=== PATIENT | female | born 1955 | race Caucasian/White ===

== ENCOUNTER → 2020-03-10 08:32 | Outpatient (CLI) | payer MEDICARE, SELFPAY ==
--- NOTE | 2020-03-10 08:36 | ART_ITS ---
Reason For Study: Varicose vein, Right thigh pain Procedure A bilateral lower extremity continuous wave Doppler with analog waveform analysis,segmental pressures,and ankle brachial indexes with exercise. Left Segmental Pressures Left brachial= 151mmHg. Left posterior tibial artery = 166mmHg. Left dorsalis pedis artery = 152mmHg. The left dorsalis pedis waveforms are triphasic. The left posterior tibial artery waveforms are triphasic. Right Segmental Pressures Right brachial= 157mmHg. Right posterior tibial artery = 165mmHg. Right dorsalis pedis artery = 162mmHg. The right dorsalis pedis waveforms are triphasic. The right posterior tibial artery waveforms are triphasic. Indices The right ankle brachial index by the dorsalis pedis is 1.03. The right ankle brachial index by the posterior tibial artery is 1.05. The right post exercise ankle brachial index is 1.14. The left ankle brachial index by the dorsalis pedis is 0.97. The left ankle brachial index by the posterior tibial artery is 1.06. The left post exercise ankle brachial index is 1.16. Interpretation Summary Triphasic Doppler waveforms are noted at ankle level bilaterally. Pulse-volume recordings appear satisfactory at all levels bilaterally, including low-thigh, calf, ankle, and digital levels. Resting ankle-brachial indices are normal bilaterally. The patient ambulated on a treadmill for 5 minutes at a 5% grade, following which ankle pressures augmented bilaterally, a normal physiological response. There is no evidence of significant arterial occlusive disease in the lower extremities bilaterally. Ordering Physician: Forrest Calvo Referring Physician: Forrest Calvo Performed By: Mirian Maciel RVT
== END ==
PROVIDERS: PCP Student in an Organized Health Care Education/Training Program; Referring Provider Student in an Organized Health Care Education/Training Program; Visit Provider Student in an Organized Health Care Education/Training Program
DX: I83.93 Asymptomatic varicose veins of bilateral lower extremities (principal); I79.8 Other disorders of arteries, arterioles and capillaries in diseases classified elsewhere
CPT/HCPCS: 93924

== ENCOUNTER 2021-06-10 14:36 | Emergency (ER) | payer MEDICARE, OTHER, SELFPAY ==
[2021-06-10 14:37] VITALS: BP 157/96; PULSE 100; RESP 18; TEMP 35.4; O2SAT 98; BMI 24.7
[2021-06-10 14:47] VITALS: O2SAT 97
--- NOTE | 2021-06-10 14:48 | EX.ED.DYSGE1 ---
HPI History of Present Illness Chief Complaint: Cold Sx Narrative Narrative: Patient is a 86-year-old female who states over the past 3 to 4 weeks she has been having persistent nasal congestion drainage and cough. She states she has been doing [id number] decongestants and nasal sprays with minimal symptom improvement. She states she has a past medical history of sinus surgery and has had recurrent sinus infections since that time. She states with the multiple weeks of symptoms not responding to time and sswp-tmi-[id number] medication she is concerned for an infection and therefore comes in for evaluation. [facility] Medical History Thyroid disease Home Medications levothyroxine 50 mcg capsule 50 mcg PO DAILY 01/30/21 [History Last Taken Unknown] amoxicillin-pot clavulanate [Augmentin] 1 tab PO BID 10 Days #20 tab 06/10/21 [Rx Last Taken Unknown] prednisone 40 mg PO DAILY 5 Days #10 tab 06/10/21 [Rx Last Taken Unknown] Allergy/AdvReac Type Severity Reaction Status Date / Time No Known Allergies Allergy Verified 06/10/21 14:37 Social History (Updated 01/30/21 @ 11:07 by Myranda Watters) Smoking Status: Never smoker alcohol intake: never ROS ROS ED Constitutional Constitutional ED: Denies chills or fever(s) ENT ENT ED: Reports rhinorrhea; Denies ear pain or sore throat Cardiovascular Cardiovascular: Denies chest pain Respiratory/Chest Respiratory/Chest: Reports cough; Denies dyspnea Gastrointestinal Gastrointestinal: Denies abdominal pain, diarrhea, nausea or vomiting Genitourinary Genitourinary ED: Denies dysuria Musculoskeletal Musculoskeletal: Denies myalgias Integumentary Denies rash Neurologic Neurologic: Reports headache(s) EXAM Physical Exam Const Vital Signs: 06/10/21 14:37 06/10/21 14:47 Temperature 95.8 F L Temperature Source Temporal Pulse Rate 100 Respiratory Rate 18 Respiratory Effort Normal Respiratory Depth Normal Respiratory Pattern Normal Blood Pressure 157/96 H Blood Pressure Mean 116 Pulse Ox 98 Oxygen Delivery Method Room Air Room Air Positive well nourished and well developed General Appearance ED: well developed HEENT Reports moist mucous membranes HEENT Narrative: Bilateral TMs are retracted but show no secondary changes to suggest infection. Nasal mucosa is hyperemic and boggy with enlarged inferior nasal turbinates. There is cobblestoning the posterior pharynx consistent with sinus drainage but no airway edema or compromise. There is pain with palpation over top the bilateral maxillary sinuses and decreased transillumination as well. Eyes PERRL and EOMs intact bilaterally Neck supple Neck Narrative: Positive anterior cervical lymphadenopathy Resp normal respiratory effort and clear to auscultation bilaterally Cardio regular rate and regular rhythm GI normal to inspection, nondistended, normoactive bowel sounds, non-tender, non-distended and no masses Auscultation: normoactive bowel sounds Palpation: soft Extremity normal to inspection Neuro oriented x3 and CN's II-XII intact bilaterally Sensorium / Orientation: alert Psych mental status grossly normal Skin no rashes or lesions noted MDM MDM MDM Narrative Medical decision making narrative: Patient presented to the ER afebrile and in no acute respiratory distress. Her symptoms are consistent with viral illness leading to acute sinusitis based on the prolonged nature of her infection. I did elect to perform a Covid swab which was negative. We discussed chest x-ray but patient's lungs are clear and she states she does not want an x-ray as she feels the cough is from drainage. As the Covid swab was negative it does point that this is a viral URI leading to secondary maxillary sinusitis. Therefore she has had symptoms for multiple weeks I will place her on a round of antibiotics and steroids but as she is in no acute distress is safe for discharge Lab Data Attestation: I reviewed the patient's lab results. Discharge Plan Triage Chief Complaint: Cold Sx ED Provider: Darci Garrison Dx/Rx/DC Orders Clinical Impression: Acute maxillary sinusitis Instructions: ED Sinusitis (Antibiotic Treatment) Prescriptions: New amoxicillin-pot clavulanate [Augmentin] 875-125 mg tablet 1 tab PO BID 10 Days Qty: 20 RF: 0 prednisone 20 mg tablet 40 mg PO DAILY 5 Days Qty: 10 RF: 0 No Action levothyroxine 50 mcg capsule 50 mcg PO DAILY RF: 0 Primary Care Provider: Forrest Calvo Referrals: Forrest Calvo DO [Primary Care Provider] - Disposition Disposition: Home, Self Care
[2021-06-10] MEDS: Amox/Clavulanate 875 MG Tablet PO (15:45)
[2021-06-10] MEDS: predniSONE 20 MG Tablet 40 MG PO (15:45)
== END 2021-06-10 15:46 | disposition home or self-care (01) ==
PROVIDERS: Emergency Provider Emergency Medicine; PCP Student in an Organized Health Care Education/Training Program
DX: J01.00 Acute maxillary sinusitis, unspecified (principal); E07.9 Disorder of thyroid, unspecified; Z79.899 Other long term (current) drug therapy
CPT/HCPCS: 87426; 99283

== ENCOUNTER 2021-06-22 11:59 | Emergency (ER) | payer MEDICARE, OTHER, SELFPAY ==
[2021-06-22 12:01] VITALS: BP 156/87; PULSE 88; RESP 16; TEMP 35.6; O2SAT 94; BMI 24.3
--- NOTE | 2021-06-22 13:43 | VDLE_ITS ---
Reason For Study: pain RIGHT GSV is normal. CFV is compressible, spontaneous, phasic, competent and demonstrates normal augmentation. FV is compressible, spontaneous, phasic, competent and demonstrates normal augmentation. POP V is compressible, spontaneous, phasic, competent and demonstrates normal augmentation. T/P Trunk is compressible. PTV is compressible. RT PerV is compressible. Procedure This is a venous duplex using B-mode, color flow and spectral Doppler. Exam performed portable in ED. The exam was abbreviated due to the COVID 19 protocol. The exam was diagnostic. A preliminary report was called and/or faxed to Dr. River. VL/Venous Duplex US, Unilateral Interpretation Summary There is no evidence of right lower extremity deep vein thrombosis. Right great saphenous vein appears patent and compressible segmentally. Abbreviated COVID-19 protocol Ordering Physician: Forrest River Performed By: Reinaldo Lagunas RVT
--- NOTE | 2021-06-22 14:38 | EDS_ITS ---
HPI History of Present Illness Chief Complaint: Lower Extremity Injury Narrative Narrative: Patient presenting for evaluation secondary to right leg pain. Patient reports that over the course of a multitude of months she has been dealing with right leg pain. She states that she had a knee x-ray that noted that she had htvs-[id number]-[id number] arthritis, but states that she has pain going all the way up into her thigh and down into her calf. Patient states that she is concerned because her blood is too thick when she tries to donate blood and is concerned for the possibility of blood clot. She denies any recent immobilization or surgery. She denies any chest pain shortness of breath or previous history of blood clots. She denies constitutional symptoms such as fever, no skin changes. Patient reports that she was on a course of prednisone for a unrelated issue and it did improve the pain in her right leg. Review of systems otherwise negative. [facility] Medical History Thyroid disease Home Medications levothyroxine 50 mcg capsule 50 mcg PO DAILY 01/30/21 [History Last Taken Unknown] amoxicillin-pot clavulanate [Augmentin] 1 tab PO BID 10 Days #20 tab 06/10/21 [Rx Last Taken Unknown] prednisone 40 mg PO DAILY 5 Days #10 tab 06/10/21 [Rx Last Taken Unknown] prednisone 40 mg PO DAILY #10 tab 06/22/21 [Rx Last Taken Unknown] Allergy/AdvReac Type Severity Reaction Status Date / Time No Known Allergies Allergy Verified 06/22/21 12:00 Social History Smoking Status: Never smoker alcohol intake: never ROS ROS ED Constitutional Constitutional ED: Denies chills or fever(s) ENT ENT ED: Denies rhinorrhea Cardiovascular Cardiovascular: Denies chest pain Respiratory/Chest Respiratory/Chest: Denies cough or dyspnea Gastrointestinal Gastrointestinal: Denies abdominal pain, diarrhea, nausea or vomiting Genitourinary Genitourinary ED: Denies dysuria or hematuria Musculoskeletal Musculoskeletal: Reports other Details: Right leg pain Integumentary Denies rash Neurologic Neurologic: Denies paresthesias or weakness Psychiatric Psychiatric: Denies depression Endocrine Endocrinology: Denies fatigue Allergic/Immunologic Allergic/Immunologic ED: Denies urticaria EXAM Physical Exam Const Vital Signs: 06/22/21 12:01 Temperature 96.0 F L Temperature Source Temporal Pulse Rate 88 Respiratory Rate 16 Blood Pressure 156/87 H Blood Pressure Mean 110 Pulse Ox 94 Oxygen Delivery Method Room Air Positive well nourished and well developed General Appearance ED: well developed and NAD HEENT Reports moist mucous membranes Negative for trauma or tenderness Eyes EOMs intact bilaterally Neck no lymphadenopathy, supple and no JVD Chest Wall inspection of chest normal Resp normal respiratory effort and clear to auscultation bilaterally Cardio regular rate, regular rhythm, no murmurs and peripheral pulses 2+ throughout GI normal to inspection, nondistended, normoactive bowel sounds, non-tender and no masses Palpation: soft Back/Spine normal to inspection Extremity normal to inspection Extremity Narrative: Examination the patient's lower extremities shows soft compartments throughout, no evidence of skin changes, no limitations of range of motion. Normal distal pulses and sensation that are bilaterally symmetric. Patient complains of diffuse pain in the calf and thigh with no palpable cord noted. General Extremety ED: Negative for tenderness Neuro oriented x3 and no sensory deficits noted Sensorium / Orientation: alert Motor Exam: strength 5/5 throughout Psych mental status grossly normal Skin no rashes or lesions noted MDM MDM MDM Narrative Medical decision making narrative: Patient presenting for evaluation secondary to leg pain. Duplex ultrasound was obtained was found to be negative, there is no outward signs of infection, no signs of decreased perfusion and this does not seem to be a presentation of claudication. Compartments are soft. Patient at this point has nondescript right leg pain. She did state that she had some improvement with a short course of prednisone, this will be provided. She was recommended to follow-up with primary care, she requested that a new referral to primary care be made. Patient was discharged in stable condition. Radiography Diagnostic Testing: Clinical Impression(s) from Imaging Studies Venous Doppler Study 06/22/21 13:43 Interpretation Summary There is no evidence of right lower extremity deep vein thrombosis. Right great saphenous vein appears patent and compressible segmentally. Abbreviated COVID-19 protocol Ordering Physician: Forrest River Performed By: Reinaldo Lagunas RVT Discharge Plan Triage Chief Complaint: Lower Extremity Injury ED Provider: Forrest River Dx/Rx/DC Orders Clinical Impression: Acute pain of right lower extremity Instructions: ED Pain, Acute, Uncertain Cause Prescriptions: New prednisone 20 mg tablet 40 mg PO DAILY Qty: 10 RF: 0 No Action levothyroxine 50 mcg capsule 50 mcg PO DAILY RF: 0 amoxicillin-pot clavulanate [Augmentin] 875-125 mg tablet 1 tab PO BID 10 Days Qty: 20 RF: 0 prednisone 20 mg tablet 40 mg PO DAILY 5 Days Qty: 10 RF: 0 Primary Care Provider: Forrest Calvo Referrals: Evelyn Ramírez MD [STAFF PHYSICIAN] - 1-2 Weeks Forrest Calvo DO [Primary Care Provider] - Disposition Disposition: Home, Self Care
== END 2021-06-22 14:49 | disposition home or self-care (01) ==
PROVIDERS: Emergency Provider Emergency Medicine; PCP Student in an Organized Health Care Education/Training Program
DX: M79.604 Pain in right leg (principal); E07.9 Disorder of thyroid, unspecified; Z79.899 Other long term (current) drug therapy
CPT/HCPCS: 93971; 99282

== ENCOUNTER 2021-08-12 14:48 | Outpatient (CLI) | payer MEDICARE, OTHER, SELFPAY ==
--- NOTE | 2021-08-12 08:30 | FEM_PTH ---
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 Andrew Sanford MD : 1955 BED: DIS: 08/12/2021 SPEC #: [id number] RECD: 08/12/21 14:43 STATUS: ZAID REQ #: [id number] ESTELLE: 08/12/21 08:[address]: Andrew Sanford DEPT: SURGICAL PATHOLOGY RECD BY: Nila Olmos ENTERED: 08/13/21 07:58 SP TYPE: FEM HEAD OTHR DR: Dr. Forrest Calvo, [facility] Tissues: Femoral region, NOS Procedures: Decalcification bone/plaque Surgery Specimen Level IV HEADER OPERATION: Right total hip arthroplasty PRE-OP DIAGNOSIS: Grade 4 osteoarthritis right hip TISSUE SUBMITTED: Femur head, bone and soft tissue, right hip MICROSCOPIC DIAGNOSIS Bone and tissue of right hip, total hip resection: Severe degenerative joint disease. Soft tissue with crystalline debris and mild synovial hyperplasia. AM:chon 08/18/2021 MICROSCOPIC DESCRIPTION Slides are reviewed. GROSS DESCRIPTION Received is one container labeled with the patient's name and designated femoral head bone and soft tissue. The specimen consists of a deformed femoral head measuring 5 x 5 x 3.5 cm. Also present in the container is a detached piece of bone consistent with portion of femoral neck measuring 4 x 3 x 1 cm. The articular surface displays prominent osteophyte formation, eburnation and bone erosion. Also present in the specimen container are multiple irregular fragments of bone reamings and pink-yellow soft tissue measuring in aggregate 9 x 8 x 3 cm. [employer] sections are submitted in two cassettes as follows: 1 - soft tissue, 2 - bone after decalcification. / SJ:chon 08/13/2021 TC:5 CPT: 40017, 99117
== END 2021-08-12 23:59 | disposition short-term general hospital (02) ==
LOC: LABSPEC 14:51
PROVIDERS: PCP Student in an Organized Health Care Education/Training Program; Visit Provider Specialist
DX: M16.11 Unilateral primary osteoarthritis, right hip (principal)
CPT/HCPCS: 88305; 88307; 88311

== ENCOUNTER 2024-03-19 13:15 | Inpatient (IN) | payer MEDICARE, OTHER, SELFPAY ==
[2024-03-19 13:16] VITALS: BP 161/102; PULSE 96; RESP 16; TEMP 36.1; O2SAT 98
--- NOTE | 2024-03-19 13:41 | RAD_ITS ---
EXAM: XR RIGHT KNEE, 1 OR 2 VIEWS CLINICAL INDICATION: Trauma injury with pain. TECHNIQUE: Frontal and/or lateral views of the right knee. COMPARISON: No relevant prior studies available. FINDINGS: BONES/JOINTS: Acute complete transverse fracture across the lower third of the patella with separation of the fracture fragments. Preservation of the joint space. No sclerotic or destructive changes observed. SOFT TISSUES: Unremarkable. No soft tissue swelling or gas. No radiopaque foreign body. RAD/Knee 1 or 2 Views IMPRESSION: 1. Acute complete transverse fracture across the lower third of the patella with wide separation of the fracture fragments. 2. No other suspicious acute fractures of the right knee. Electronically Signed: Clarence Hunt MD at 15:15 EDT ,
--- NOTE | 2024-03-19 14:28 | EDS_ITS ---
HPI History of Present Illness Chief Complaint: Lower Extremity Injury Detail of Chief Complaint: Injury right knee Informant: patient Narrative Narrative: Patient presents to the emergency department with injury to her right knee. Patient states that she fell onto today and then could not bear weight so she called the squad. She does not think she fell hard because she bent over to pick something up and went down easily on her right knee. Patient also claims that she had an injury at a gas station a few months ago where something hit her Achilles tendon causing her to fall onto her right side and she had some mild discomfort to that knee since that time. Patient tells me she was able to ride a bike yesterday. Patient denies striking her head or loss of consciousness. She denies neck pain or chest pain or abdominal pain. [facility] Medical History Acute bronchitis, unspecified Acute frontal sinusitis, unspecified Thyroid disease Home Medications ?Medication ?Instructions ?Recorded ?Last Taken ?Type hydrochlorothiazide 12.5 mg tablet mg PO 07/02/23 Unknown History levothyroxine 100 mcg tablet mcg PO 07/02/23 Unknown History levothyroxine 88 mcg tablet 88 mcg PO DAILY 07/02/23 Unknown History rosuvastatin 20 mg tablet mg PO 07/02/23 Unknown History hydrocodone-acetaminophen 5-325mg 1 tab PO Q4H PRN PRN Pain 2 days 03/19/24 Unknown Rx 5mg-325mg #10 TABLETS Allergy/AdvReac Type Severity Reaction Status Date / Time No Known Allergies Allergy Verified 03/19/24 13:19 Social History Smoking Status: Never smoker alcohol intake: never ROS ROS ED Review of Systems ROS Unobtainable: other Constitutional Constitutional ED: Reports lethargy; Denies chills, fever(s), sweats or weight loss Eyes Eyes: Denies blurry vision, change in vision or diplopia ENT ENT ED: Denies rhinorrhea or sore throat Cardiovascular Cardiovascular: Denies chest pain, orthopnea or racing heartbeat Respiratory/Chest Respiratory/Chest: Denies cough, dyspnea, dyspnea on exertion, orthopnea or sputum Gastrointestinal Gastrointestinal: Denies abdominal pain, diarrhea, nausea or vomiting Genitourinary Genitourinary ED: Denies dysuria, hematuria or urinary frequency Musculoskeletal Musculoskeletal: Reports other Details: Right knee pain/injury ; Denies arthralgias, back pain, myalgias or neck pain Integumentary Denies abscess, Abrasions or rash Neurologic Neurologic: Denies headache(s) or weakness Psychiatric Psychiatric: Denies anxiety, depression or suicidal thoughts Endocrine Endocrinology: Denies polydipsia, polyphagia or polyuria Hematologic/Lymphatic Hematologic/Lymphatic: Denies easy bleeding, easy bruising or lymphadenopathy Allergic/Immunologic Allergic/Immunologic ED: Denies mouth swelling, tongue swelling or urticaria EXAM Physical Exam Const Vital Signs: 03/19/24 13:16 Temperature 97 F L Temperature Source Temporal Pulse Rate 96 Respiratory Rate 16 Blood Pressure 161/102 H Blood Pressure Mean 121 Pulse Ox 98 Oxygen Delivery Method Room Air Positive well nourished and well developed General Appearance ED: well developed and NAD HEENT Reports TM's clear and moist mucous membranes normocephalic and atraumatic; Negative for trauma or tenderness Tympanic Membrane ED: Yes TM's clear Eyes PERRL and EOMs intact bilaterally General Eye ED: Negative for pale conjunctiva or scleral icterus Neck no lymphadenopathy, supple and no JVD General: Negative for tenderness Chest Wall inspection of chest normal and palpation of chest normal Chest: Negative for tenderness Resp normal respiratory effort and clear to auscultation bilaterally Effort and Inspection: Negative for respiratory distress or pain with movement Auscultation: Negative for rhonchi, wheezes or diminished lung sounds Cardio regular rate, regular rhythm, S1 normal heart sound, S2 normal heart sound and no murmurs Peripheral Pulses: pulses 2+ throughout GI normal to inspection, nondistended, normoactive bowel sounds, soft to palpation, non-tender, non-distended and no masses Back/Spine no CVA tenderness and no thoracic nor lumbar tenderness Extremity Extremity Narrative: Right knee-patient has soft tissue swelling over the anterior aspect of the patella with obvious deformity. She has ecchymosis and bruising noted. She has no ability to lift the leg up off the bed. Neurovascular intact distally. No broken skin or open areas. No pain at the hip. No pain at the ankle. General Extremety ED: Negative for edema General Extremity: Negative for edema Neuro oriented x3, CN's II-XII intact bilaterally, no sensory deficits noted and gait normal Sensorium / Orientation: awake, alert, oriented to person, oriented to place and oriented to time Motor Exam: strength 5/5 throughout and strength abnormal Psych mental status grossly normal Skin no rashes or lesions noted and no wounds MDM MDM MDM Narrative Medical decision making narrative: Patient presents by squad with complaint of right knee injury and pain. Patient had x-rays of the right knee interpreted by myself as patella fracture. Discussed case with orthopedic surgeon on-call Dr. Talley who also looked at the images. He felt maybe the fracture is old or nonacute however she has acute findings on exam. Plan will be to place patient in knee immobilizer and give her crutches and pain medication and follow-up with [facility]. Patient has seen Dr. Andrew Sanford in the past and had a right hip replacement by him. After attempting to ambulate with crutches and knee immobilizer patient unable to ambulate. She is concerned because she cannot care for self and has nobody to help her. Case will be discussed with hospitalist to evaluate patient for admission. Radiography Diagnostic Testing: Three-view x-rays of the right knee obtained interpreted by myself as patella fracture. Discharge Plan Triage Chief Complaint: Lower Extremity Injury ED Provider: Karie Recio Dx/Rx/DC Orders Clinical Impression: Closed fracture of right patella Instructions: ED Patella Fracture Prescriptions: New hydrocodone-acetaminophen 5-325 mg tablet 1 tab PO Q4H PRN PRN (Reason: Pain) 2 Days Qty: 10 0RF No Action levothyroxine 100 mcg tablet PO Patient Comments: TAKE 1 TABLET BY MOUTH FORM MONDAY-MONDAY, THEN TAKE THE 88 MCG ON MONDAY levothyroxine 88 mcg tablet 88 mcg PO DAILY Patient Comments: TAKE 1 TABLET BY MOUTH TWICE A WEEK ON MONDAY AND MONDAY. TAKE 100 MCG ALL OTHER DAYS hydrochlorothiazide 12.5 mg tablet PO Patient Comments: TAKE 1 TABLET BY MOUTH EVERY DAY rosuvastatin 20 mg tablet PO Patient Comments: TAKE 1 TABLET BY MOUTH AT BEDTIME Primary Care Provider: Forrest Calvo Referrals: Forrest Calvo DO [Primary Care Provider] - Johnnie Talley DO [Med Staff - Active Staff] - 3-5 Days Andrew Sanford MD [Med Staff - Active Staff] - 3-5 Days Print Language: Barbadian Disposition Disposition: Home, Self Care
--- NOTE | 2024-03-19 15:04 | ED.RN ---
Patient being very rude to this nurse and staff. She stated, this is a medical emergency. I have a broken knee cap. No one is doing anything. Patient declined pain medication. Per Dr. Recio, if patient is unable to find help at home since patient lives by herself, she should be admitted. I attempted to explain this to the patient but she kept interrupting this nurse. Dr. Eaton attempted to go in and speak to the patient. Patient continued to talk on the phone with a neighbor.
[2024-03-19 15:15] VITALS: BP 131/64; PULSE 97; RESP 16; O2SAT 96
[2024-03-19 15:33] LABS: Absolute Lymphocyte Count 1.02 X10^3/uL (0.83-4.51); Absolute Neutrophil Count 12.3 X10^3/uL (2.0-7.7); Basophil# 0.05 X10^3/uL; Basophil% 0.3 % (0-1); Eosinophil# 0.01 X10^3/uL; Eosinophils% 0.1 % (0-5); Hematocrit 45.3 % (37-47); Hemoglobin 14.8 g/dL (12.0-15.0); Lymphocyte # 1.02 X10^3/ul (0.83-4.51); Lymphocyte % 7.1 % (19-41); Mean Corp Hgb Conc 32.7 g/dL (32-36); Mean Platelet Vol. 9.5 fl (6.2-12.0); Monocyte# 0.86 X10^3/uL; NRBC Flagged by Analyzer 0 % (0-5); Neutrophil # 12.29 X10^3/uL (2.7-7.7); Platelet Count 286 K/mm3 (150-450); RBC Distribution Width CV 14.2 % (11.6-14.6); RBC Distribution Width SD 50.4 fl (35.1-43.9); Red Blood Count 4.77 M/mm3 (4.2-5.4); White Blood Count 14.3 K/mm3 (4.4-11.0)
--- NOTE | 2024-03-19 15:33 | PCM.HP.STD ---
HPI - General General Date of Admission: 03/19/24 Date of Service: 03/19/24 Chief Complaint: pain in her right knee HPI Narrative POLO MESSER, is a 69 F with a PMH as outlined who presents via the ED on 03/19/2024 with pain and swelling in her right knee. Patient states she went bicycle riding on the day of admission when she came back she could not weight-bear on her right leg. She also noted that the right leg was swollen. She says a few weeks ago she hit her Achilles tendon in her right leg against something in the store and thinks this may have triggered it. Per the ED report patient states she fell the patient tells me that she did not fall but thinks she went down easily on her right knee. She denied any fever or chills, or any other trauma to her right knee. She denied having such pain in the past. Review of systems otherwise negative. Vitals in the ED were blood pressure 142/88, pulse rate of 69 and respiratory rate of 17. Temperature was 98 Fahrenheit and she was saturating at 99% on room air. CBC was significant for WBC of 14.3 but was otherwise unremarkable. Chemistry showed sodium of 135 with potassium of 3.3, with creatinine of 0.94. X-ray of the right knee showed acute complete transverse fracture across the lower third of the patella with wide separation of the fracture fragments and no other acute fractures of the right knee. Plan was for patient to be discharged from the ED but she said she was in too much pain and could not weight-bear and so wanted to be admitted. She is therefore been admitted to be managed for debility and weakness due to right knee pain from acute right patella fracture. [facility] Medical History Acute bronchitis, unspecified Acute frontal sinusitis, unspecified Thyroid disease Home Medications ?Medication ?Instructions ?Recorded ?Last Taken ?Type hydrochlorothiazide 12.5 mg tablet 12.5 mg PO DAILY 07/02/23 03/19/24 History levothyroxine 100 mcg tablet 100 mcg PO MOTUWEFRSA 07/02/23 03/19/24 History levothyroxine 88 mcg tablet 88 mcg PO SUTH 07/02/23 03/17/24 History rosuvastatin 20 mg tablet 20 mg PO QHS 07/02/23 03/18/24 History albuterol sulfate 90 mcg/actuation 2 puff inhalation Q6H PRN wheezing 03/19/24 Unknown History aerosol inhaler aspirin 81 mg tablet,delayed 81 mg PO DAILY 03/19/24 03/19/24 History release azelastine 137 mcg (0.1 %) nasal 1 spray intranasal BID 03/19/24 03/19/24 History spray cetirizine 10 mg tablet 10 mg PO DAILY 03/19/24 03/19/24 History hydrocodone-acetaminophen 5-325mg 1 tab PO Q4H PRN PRN Pain 2 days 03/19/24 Unknown Rx 5mg-325mg #10 TABLETS meloxicam 15 mg tablet 15 mg PO DAILY 03/19/24 03/19/24 History Allergy/AdvReac Type Severity Reaction Status Date / Time No Known Allergies Allergy Verified 03/19/24 13:19 Social History Smoking Status: Never smoker alcohol intake: never ROS Constitutional Constitutional: Reports weakness; Denies anorexia, change in weight, chills, fatigue, fever(s) or malaise Eyes Eyes: Denies change in vision ENT HEENT: Denies dysphagia, headache(s), nasal congestion or sore throat Cardiovascular Cardiovascular: Denies chest pain, dyspnea on exertion, edema, lightheadedness, orthopnea, palpitations, paroxysmal nocturnal dyspnea, rapid heart rate or syncope Respiratory/Chest Respiratory/Chest: Denies cough, dyspnea, productive cough, shortness of breath at rest or shortness of breath with exertion Gastrointestinal Gastrointestinal: Denies abdominal pain, constipation, diarrhea, nausea or vomiting Genitourinary Genitourinary: Denies dysuria Musculoskeletal Musculoskeletal: Reports joint pain and joint swelling; Denies arthralgias, back pain, myalgias or neck pain Neurologic Neurologic: Reports abnormal gait; Denies confusion, disequilibrium, dizziness, focal weakness, headache(s), numbness, paresthesias, seizures or syncope Psychiatric Psychiatric: Denies anxiety or depression Endocrine Endocrinology: Denies change in body appearance Hematologic/Lymphatic Hematologic/Lymphatic: Denies anemia Vital Signs Vital Signs Vital Signs: 03/19/24 13:16 Temperature 97 F L Temperature Source Temporal Pulse Rate 96 Respiratory Rate 16 Blood Pressure 161/102 H Blood Pressure Mean 121 Pulse Ox 98 Oxygen Delivery Method Room Air Physical Exam Const alert, oriented x3, no apparent distress and healthy appearing General Appearance: cooperative HEENT normocephalic, head/scalp atraumatic, hearing grossly normal bilaterally, moist oral mucous membranes and oropharynx normal Mouth: oral and palatal mucosa normal Eyes PERRL, EOMs intact bilaterally and conjunctivae normal Neck no lymphadenopathy and supple Resp normal respiratory effort, no retractions, no use of accessory muscles and clear to auscultation bilaterally Cardio regular rate, regular rhythm, S1 normal heart sound, S2 normal heart sound and no murmurs GI normal to inspection, nondistended, normoactive bowel sounds, soft to palpation and non-tender Extremity Extremity Narrative: right knee is swollen, mildly tender to palpation, patella fractured Neuro oriented x3, CN's II-XII intact bilaterally and moves all extremities Sensorium / Orientation: awake and alert Motor Exam: strength 5/5 throughout Psych affect normal Results Lab / Micro Data 03/19/24 15:25 03/19/24 15:25 Imaging Radiology Impression Knee X-Ray 03/19/24 13:41 IMPRESSION: 1. Acute complete transverse fracture across the lower third of the patella with wide separation of the fracture fragments. 2. No other suspicious acute fractures of the right knee. Electronically Signed: Clarence Hunt MD at 15:15 EDT , Assessment & Plan Assessment/Plan (1) Closed fracture of right patella: PLAN: Plan #Debility due to closed right patella fracture etiology of the right patellar fracture is unclear since she denies any fracture and says she fell gently on her knee recently. imaging showed acute complete transverse fracture across the lower third of the patella with wide separation of the fracure segments patient said she could not be discharged home as she felt too weak and could not weight bear. admit to med surg PT/OT on board PO tylenol, oxycodone and iV morphine prn for pain. fall precautions to follow up with orthopedic surgery on outpatient basis. #Hypertension: on HCTZ. ISS. Accuchecks ACHS #Hypothyroidism: on synthroid DVT prophylaxis: SCDs Code status: full code Patient counseled extensively about different types of CODE STATUS including full code, DNR CCA and DNR CCA. Patient elects to be full code. Total [id number] time 16 minutes. Charges/Coding Visit Charges Inpatient E&M: 59825 Init Hosp L2 Procedures Hospitalists Procedures: 32339 Advncd Care Plan 30 Min
[2024-03-19 16:02] LABS: Anion Gap 8 (5-15); BUN 19 mg/dL (7-18); BUN/Creat Ratio 20.3 RATIO (10-20); Calcium,Total 9.9 mg/dL (8.5-10.1); Chloride 98 mmol/L (98-107); Creatinine, Serum 0.94 mg/dL (0.55-1.02); EST Glomerular Filtration Rate 63 mL/min (>60); Est Glom Filt Rate - Afr Amer 76 mL/min (>60); Glucose 125 mg/dL (74-106); Potassium 3.3 mmol/L (3.5-5.1); Sodium Level 135 mmol/L (136-145)
[2024-03-19 16:28] VITALS: BP 142/88; PULSE 69; RESP 17; TEMP 36.6; O2SAT 99
[2024-03-19 17:00] VITALS: BP 145/82; PULSE 78; O2SAT 98
[2024-03-19 19:20] VITALS: RESP 15
[2024-03-19 19:48] VITALS: BP 143/90; PULSE 115; RESP 18; TEMP 36.7; O2SAT 98
[2024-03-19 19:50] VITALS: BMI 27.8
[2024-03-19] MEDS: Acetaminophen 325 MG Tablet 650 MG PO (19:59)
[2024-03-19] MEDS: oxyCODONE 5 MG Tablet PO (19:59)
[2024-03-19] MEDS: Atorvastatin Calcium 40 MG Tablet PO (22:52)
[2024-03-19] MEDS: Azelastine HCl NASAL.SRY 1 SPRAY NASAL (22:53)
[2024-03-19] MEDS: MELATONIN 3 MG TABLET PO (23:18)
[2024-03-20 03:00] VITALS: O2SAT 96
[2024-03-20 03:07] VITALS: BP 118/78; PULSE 85; RESP 15; TEMP 36.8; O2SAT 96
[2024-03-20] MEDS: oxyCODONE 5 MG Tablet PO ×3 (03:13→22:42)
[2024-03-20] MEDS: Acetaminophen 325 MG Tablet 650 MG PO (03:14)
[2024-03-20 07:22] LABS: Anion Gap 8 (5-15); BUN 18 mg/dL (7-18); BUN/Creat Ratio 17.1 RATIO (10-20); Calcium,Total 9.3 mg/dL (8.5-10.1); Chloride 101 mmol/L (98-107); Creatinine, Serum 1.05 mg/dL (0.55-1.02); EST Glomerular Filtration Rate 55 mL/min (>60); Est Glom Filt Rate - Afr Amer 67 mL/min (>60); Estimated Creatinine Clearance 53.44 ml/min; Glucose 117 mg/dL (74-106); Potassium 3.6 mmol/L (3.5-5.1); Sodium Level 136 mmol/L (136-145)
[2024-03-20 07:23] LABS: Absolute Lymphocyte Count 1.93 X10^3/uL (0.83-4.51); Absolute Neutrophil Count 6.2 X10^3/uL (2.0-7.7); Basophil# 0.02 X10^3/uL; Basophil% 0.2 % (0-1); Eosinophil# 0.09 X10^3/uL; Hematocrit 40.7 % (37-47); Hemoglobin 13.3 g/dL (12.0-15.0); Lymphocyte # 1.93 X10^3/ul (0.83-4.51); Lymphocyte % 20.8 % (19-41); Mean Corp Hgb Conc 32.7 g/dL (32-36); Mean Corpuscular Hgb 31.4 pg (27.0-32.0); Mean Corpuscular Volume 96.2 fL (81-99); Monocyte# 1.05 X10^3/uL; Monocyte% 11.3 % (0-10); NRBC Flagged by Analyzer 0 % (0-5); Neutrophil # 6.18 X10^3/uL (2.7-7.7); Neutrophil % 66.5 % (47-70); Platelet Count 281 K/mm3 (150-450); RBC Distribution Width CV 14.6 % (11.6-14.6); RBC Distribution Width SD 51.2 fl (35.1-43.9); Red Blood Count 4.23 M/mm3 (4.2-5.4); White Blood Count 9.3 K/mm3 (4.4-11.0)
--- NOTE | 2024-03-20 07:38 | PCM.PN.HOSP ---
Reason for Visit Reason for Visit: Diagnoses Unspecified fracture of right patella, initial encounter for closed fracture (03/19/24) Subjective Subjective Patient is a 69-year-old lady who presented to the emergency department with pain in the right knee after hearing a pop following a fall on her rug, imaging studies demonstrated close right patella fracture admitted to regular nursing floor for pain management Objective Data Objective Data Vital Signs: Vital Signs Temp Pulse Resp BP Pulse Ox O2 Del Method 98.2 F 85 15 118/78 96 Room Air 03/20/24 03:07 03/20/24 03:07 03/20/24 03:07 03/20/24 03:07 03/20/24 03:07 03/20/24 03:07 Oxygen Delivery Method Room Air Weight: 78.4 kg Body Mass Index (BMI) 27.8 Intake & Output: Intake and Output for Last 24 Hours 03/18/24 03/19/24 03/20/24 23:59 23:59 23:59 Intake Total 100 / 100 Output Total 200 / 200 Balance -100 / -100 Lab / Micro Data 03/20/24 05:55 03/20/24 05:55 Labs: Laboratory Results - last 24 hr 03/19/24 15:25: WBC 14.3 H, RBC 4.77, Hgb 14.8, Hct 45.3, MCV 95.0, MCH 31.0, MCHC 32.7, RDW Std Deviation 50.4 H, RDW Coeff of Walter 14.2, Plt Count 286, MPV 9.5, Immature Gran % (Auto) 0.500, Neut % (Auto) 86.0 H, Lymph % (Auto) 7.1 L, [place] % (Auto) 6.0, Eos % (Auto) 0.1, Baso % (Auto) 0.3, Absolute Neuts (auto) 12.3 H, Absolute Lymphs (auto) 1.02, Nucleated RBC % 0, Sodium 135 L, Potassium 3.3 L, Chloride 98, Carbon Dioxide 29.0, Anion Gap 8, BUN 19 H, Creatinine 0.94, Est GFR (MDRD) Af Amer 76, Est GFR (MDRD) Non-Af 63, BUN/Creatinine Ratio 20.3 H, Glucose 125 H, Calcium 9.9 03/20/24 05:55: WBC 9.3, RBC 4.23, Hgb 13.3, Hct 40.7, MCV 96.2, MCH 31.4, MCHC 32.7, RDW Std Deviation 51.2 H, RDW Coeff of Walter 14.6, Plt Count 281, MPV 10.0, Immature Gran % (Auto) 0.200, Neut % (Auto) 66.5, Lymph % (Auto) 20.8, [place] % (Auto) 11.3 H, Eos % (Auto) 1.0, Baso % (Auto) 0.2, Absolute Neuts (auto) 6.2, Absolute Lymphs (auto) 1.93, Nucleated RBC % 0, Sodium 136, Potassium 3.6, Chloride 101, Carbon Dioxide 27.0, Anion Gap 8, BUN 18, Creatinine 1.05 H, Estim Creat Clear Calc 53.44, Est GFR (MDRD) Af Amer 67, Est GFR (MDRD) Non-Af 55 L, BUN/Creatinine Ratio 17.1, Glucose 117 H, Calcium 9.3 Radiography Diagnostic Testing: Radiology Impression Knee X-Ray 03/19/24 13:41 IMPRESSION: 1. Acute complete transverse fracture across the lower third of the patella with wide separation of the fracture fragments. 2. No other suspicious acute fractures of the right knee. Electronically Signed: Clarence Hunt MD at 15:15 EDT , Physical Exam Narrative GENERAL: cooperative HEENT: Atraumatic; normocephalic EYES; Anicteric, Normal Conjunctiva NECK; supple, normal thyroid, RESPIRATORY: Diminished to auscultation CARDIOVASCULAR: Regular S1 S2, GI: soft, normoactive bowel sounds, : No Renal angle tenderness; EXTREMITIES: No edema, no clubbing, MUSCULOSKELETAL: Right knee swelling NEURO: Awake; no lateralizing signs. SKIN: No Rash PSYCH; Flat affect Assessment & Plan Assessment/Plan (1) Closed fracture of right patella: PLAN: Plan Patient is a 69-year-old lady who presented to the emergency department with pain in the right knee after hearing a pop following a fall on her rug, imaging studies demonstrated close right patella fracture admitted to regular nursing floor for pain management 1. Fall with right patella fracture ? Imaging studies demonstrated acute complete transverse fracture across the lower third of the patella with wide separation of the fracure segments. Admitted for pain management in addition to PT OT with plans for patient to follow-up with orthopedic surgery as outpatient 2. Hypothyroidism ? Patient is on levothyroxine home dose continued 3. Hypertension ? Blood pressure controlled, home medications continued with dose adjustment as needed 4. Dyslipidemia ?Patient is on statin therapy, continued at home dose 5. DVT prophylaxis ? On enoxaparin Time spent in the patient's overall evaluation,decision-making process, review of diagnostic data, adjustment of management, discussion with other providers, nursing nursing and ancillary staff involved in patient's care documentation, 40 Minutes Charges/Coding Visit Charges Inpatient E&M: 45526 Subs Hosp L2
[2024-03-20] MEDS: Levothyroxine 100 MCG Tablet PO (08:31)
[2024-03-20 09:04] VITALS: BP 122/68; PULSE 82; RESP 18; TEMP 36.8; O2SAT 95
[2024-03-20 09:17] VITALS: BP 126/71; PULSE 98; RESP 17; TEMP 36.8; O2SAT 96
[2024-03-20] MEDS: Azelastine HCl NASAL.SRY 1 SPRAY NASAL ×2 (09:21→21:36)
[2024-03-20] MEDS: Loratadine 10 MG Tablet PO (09:22)
[2024-03-20] MEDS: Meloxicam 15 MG Tablet PO (09:22)
[2024-03-20] MEDS: hydroCHLOROthiazide 12.5mg 12.5 MG PO (09:22)
[2024-03-20] MEDS: Aspirin E.C. 81 MG Tablet PO (09:22)
[2024-03-20] MEDS: Enoxaparin 40 MG/0.4 ML Syringe SC (09:23)
[2024-03-20 14:10] VITALS: BP 114/65; PULSE 103; RESP 16; TEMP 37.2; O2SAT 95
--- NOTE | 2024-03-20 16:05 | CHAPLAIN ---
Type of Pastoral Visit _x__ Initial Visit ___ Follow-up Visit ___ On-call Visit ___ General Patient Visit ___ Spiritual Assessment ___ Family Conference ___ Bereavement ___ Rapid Response ___ Code Blue ___ Other (describe below) Pastoral Care Referral From _x__ Patient ___ Family ___ Nurse ___ Physician ___ Lead Application Architect ___ Taxonomy Teacher ___ Other (describe below) Sacrament/Intervention _x__ Active listening ___ Anointing ___ Religious ___ Bereavement ___ Communion ___ Charlene exploration ___ _x__ Life review _x__ Prayer ___ Reconciliation ___ Sacrament of Sick ___ Supportive presence ___ Wedding ___ Other (describe below) Pastoral Comments patient is welcoming and is focused on her knee and what happened I'm not really sure; pt wants to understand why she fell and what happened to her; pt admits that she is having a difficult time with being inactive and waiting for answers; pt has been to churches throughout her life but does not currently have a particular shinto to call her own; pt does request prayer and appears to enjoy the opportunity to talk with someone
--- NOTE | 2024-03-20 17:03 | CASEMGMT ---
Met with patient to complete HANLEY form. HANLEY form explained to patient who voiced understanding and signed form. Original form placed in pt?s chart and copy provided to patient. Desiree Mandel, Discharge Planning Asst
[2024-03-20 19:52] VITALS: BP 132/81; PULSE 85; RESP 16; TEMP 36.6; O2SAT 95
[2024-03-20] MEDS: Atorvastatin Calcium 40 MG Tablet PO (21:36)
[2024-03-20] MEDS: MELATONIN 3 MG TABLET PO (21:36)
[2024-03-20] MEDS: 0.9% Saline Lock 10 ML Syringe IV (21:39)
[2024-03-21] VITALS (15 sets, daily range): BP systolic 106–163; BP diastolic 48–122; PULSE 70–82; RESP 16–18; TEMP 36.2–36.8; O2SAT 93–98; BMI 27.8
[2024-03-21] MEDS: oxyCODONE 5 MG Tablet PO ×2 (05:27→21:32)
[2024-03-21] MEDS: Levothyroxine 88 MCG Tablet PO (05:27)
[2024-03-21] MEDS: Acetaminophen 325 MG Tablet 650 MG PO ×2 (05:27→21:32)
--- NOTE | 2024-03-21 07:32 | PCM.PN.HOSP ---
Reason for Visit Reason for Visit: Diagnoses Unspecified fracture of right patella, initial encounter for closed fracture (03/19/24) Subjective Subjective Consult was placed to orthopedic surgery regarding patient patella fracture plan is for surgical intervention Objective Data Objective Data Vital Signs: Vital Signs Temp Pulse Resp BP Pulse Ox O2 Del Method 98.2 F 81 16 106/62 95 Room Air 03/21/24 05:20 03/21/24 05:20 03/21/24 05:20 03/21/24 05:20 03/21/24 05:20 03/21/24 05:20 Oxygen Delivery Method Room Air Weight: 78.4 kg Body Mass Index (BMI) 27.8 Intake & Output: Intake and Output for Last 24 Hours 03/19/24 03/20/24 03/21/24 23:59 23:59 23:59 Intake Total 1000 / 1000 200 / 200 Output Total 500 / 500 Balance 500 / 500 200 / 200 Lab / Micro Data 03/21/24 07:05 03/20/24 05:55 Physical Exam Narrative GENERAL: cooperative HEENT: Atraumatic; normocephalic EYES; Anicteric, Normal Conjunctiva NECK; supple, normal thyroid, RESPIRATORY: Diminished to auscultation CARDIOVASCULAR: Regular S1 S2, GI: soft, normoactive bowel sounds, : No Renal angle tenderness; EXTREMITIES: No edema, no clubbing, MUSCULOSKELETAL: Right knee swelling NEURO: Awake; no lateralizing signs. SKIN: No Rash PSYCH; Flat affect Assessment & Plan Assessment/Plan (1) Closed fracture of right patella: PLAN: Plan Patient is a 69-year-old lady who presented to the emergency department with pain in the right knee after hearing a pop following a fall on her rug, imaging studies demonstrated close right patella fracture admitted to regular nursing floor for pain management 1. Fall with right patella fracture ? Imaging studies demonstrated acute complete transverse fracture across the lower third of the patella with wide separation of the fracure segments. Admitted for pain management in addition to PT OT with plans for patient to follow-up with orthopedic surgery as outpatient ? 03/21/2024; consult was placed to orthopedic surgery regarding patient patella fracture plan is for surgical interventio 2. Hypothyroidism ? Patient is on levothyroxine home dose continued 3. Hypertension ? Blood pressure controlled, home medications continued with dose adjustment as needed 4. Dyslipidemia ?Patient is on statin therapy, continued at home dose 5. DVT prophylaxis ? On enoxaparin Time spent in the patient's overall evaluation,decision-making process, review of diagnostic data, adjustment of management, discussion with other providers, nursing nursing and ancillary staff involved in patient's care documentation, 38 minutes Charges/Coding Visit Charges Inpatient E&M: 59268 Subs Hosp L2
[2024-03-21 08:17] LABS: Absolute Lymphocyte Count 1.47 X10^3/uL (0.83-4.51); Absolute Neutrophil Count 5.6 X10^3/uL (2.0-7.7); Basophil# 0.02 X10^3/uL; Basophil% 0.2 % (0-1); Eosinophil# 0.16 X10^3/uL; Hematocrit 38.2 % (37-47); Hemoglobin 12.1 g/dL (12.0-15.0); Lymphocyte # 1.47 X10^3/ul (0.83-4.51); Lymphocyte % 18.1 % (19-41); Mean Corp Hgb Conc 31.7 g/dL (32-36); Mean Corpuscular Hgb 30.7 pg (27.0-32.0); Monocyte# 0.88 X10^3/uL; Monocyte% 10.8 % (0-10); NRBC Flagged by Analyzer 0 % (0-5); Neutrophil # 5.57 X10^3/uL (2.7-7.7); Neutrophil % 68.5 % (47-70); Platelet Count 241 K/mm3 (150-450); RBC Distribution Width CV 14.6 % (11.6-14.6); RBC Distribution Width SD 52.2 fl (35.1-43.9); Red Blood Count 3.94 M/mm3 (4.2-5.4); White Blood Count 8.1 K/mm3 (4.4-11.0)
[2024-03-21 09:04] LABS: Anion Gap 5 (5-15); BUN 17 mg/dL (7-18); BUN/Creat Ratio 17.5 RATIO (10-20); Calcium,Total 9.2 mg/dL (8.5-10.1); Chloride 100 mmol/L (98-107); Creatinine, Serum 0.97 mg/dL (0.55-1.02); EST Glomerular Filtration Rate 60 mL/min (>60); Est Glom Filt Rate - Afr Amer 73 mL/min (>60); Estimated Creatinine Clearance 57.84 ml/min; Glucose 115 mg/dL (74-106); Magnesium 2.2 mg/dL (1.6-2.6); Phosphorus 3.2 mg/dL (2.5-4.9); Potassium 3.6 mmol/L (3.5-5.1); Sodium Level 134 mmol/L (136-145)
--- NOTE | 2024-03-21 10:00 | CASEMGMT ---
Discharge Planning A list of SNF providers including quality and resource use data and consistent with the patient's preferred geographic region, medical needs, and insurance network was created in [employer].? This list was provided to the SW. Desiree Mandel Discharge Planning Asst.
--- NOTE | 2024-03-21 10:29 | CONS.ORTHO ---
HPI Consult Data Date of Consult: 03/21/24 HPI Narrative Reason for Consultation: Right patella fracture HPI Narrative: POLO MESSER, is a 69 F who presented via EMS to [facility] emergency department 03/19/2024 after a fall on a flexed right knee. She is unsure how she fell however the injury was sustained in her kitchen at home. She was unable to bear weight and called her family that lives across the street before calling EMS. She denies any prior issues with her right knee. I was called from the emergency department on 03/19/2024 and recommended a knee immobilizer and outpatient follow-up. Unfortunately patient was unable to mobilize well and she was placed in observation by the hospitalist service. I was notified of her poor progress yesterday and that asked to see the patient. She states her pain is reasonably well-controlled at this time if she does not mobilize or bend her knee. She states she is not a smoker. She lives at home alone. Past medical history significant for hypertension, hypothyroidism. Denies history of DVT or PE. Denies issue with anesthesia in the past. [facility] Medical History Acute bronchitis, unspecified Acute frontal sinusitis, unspecified Thyroid disease Home Medications ?Medication ?Instructions ?Recorded ?Last Taken ?Type hydrochlorothiazide 12.5 mg tablet 12.5 mg PO DAILY 07/02/23 03/19/24 History levothyroxine 100 mcg tablet 100 mcg PO MOTUWEFRSA 07/02/23 03/19/24 History levothyroxine 88 mcg tablet 88 mcg PO SUTH 07/02/23 03/17/24 History rosuvastatin 20 mg tablet 20 mg PO QHS 07/02/23 03/18/24 History albuterol sulfate 90 mcg/actuation 2 puff inhalation Q6H PRN wheezing 03/19/24 Unknown History aerosol inhaler aspirin 81 mg tablet,delayed 81 mg PO DAILY 03/19/24 03/19/24 History release azelastine 137 mcg (0.1 %) nasal 1 spray intranasal BID 03/19/24 03/19/24 History spray cetirizine 10 mg tablet 10 mg PO DAILY 03/19/24 03/19/24 History hydrocodone-acetaminophen 5-325mg 1 tab PO Q4H PRN PRN Pain 2 days 03/19/24 Unknown Rx 5mg-325mg #10 TABLETS meloxicam 15 mg tablet 15 mg PO DAILY 03/19/24 03/19/24 History Allergy/AdvReac Type Severity Reaction Status Date / Time No Known Allergies Allergy Verified 03/19/24 13:19 Social History Smoking Status: Never smoker alcohol intake: never ROS ROS Narrative 12 point review systems obtained, negative as otherwise noted HPI. Vital Signs Vital Signs Vital Signs: 03/20/24 14:10 03/20/24 16:42 03/20/24 19:52 Temperature 98.9 F 97.9 F Temperature Source Oral Temporal Pulse Rate 103 H 85 Pulse Strength Respiratory Rate 16 16 Respiratory Effort Normal Non-Labored Blood Pressure 114/65 132/81 H Blood Pressure Mean 81 98 Blood Pressure Source Monitor Monitor Blood Pressure Position Semi-Fowlers Sitting Blood Pressure Location Left Arm Left Arm Pulse Ox 95 95 Oxygen Delivery Method Room Air Room Air 03/20/24 19:54 03/20/24 20:00 03/21/24 01:36 Temperature 97.2 F L Temperature Source Temporal Pulse Rate 76 Pulse Strength Weak (1+) Respiratory Rate 16 Respiratory Effort Normal Non-Labored Blood Pressure 114/60 Blood Pressure Mean 78 Blood Pressure Source Monitor Blood Pressure Position Sitting Blood Pressure Location Left Arm Pulse Ox 96 Oxygen Delivery Method Room Air Room Air 03/21/24 05:20 03/21/24 10:16 03/21/24 10:25 Temperature 98.2 F 98.3 F Temperature Source Oral Oral Pulse Rate 81 70 Pulse Strength Weak (1+) Respiratory Rate 16 16 Respiratory Effort Blood Pressure 106/62 117/60 Blood Pressure Mean 76 79 Blood Pressure Source Monitor Monitor Blood Pressure Position Sitting Sitting Blood Pressure Location Left Arm Left Arm Pulse Ox 95 95 Oxygen Delivery Method Room Air Room Air Weight Weight: 172 lb 13.478 oz Body Mass Index (BMI) 27.8 Physical Exam Narrative General -A&Ox3, NAD, appears stated age. Vital signs stable, afebrile. Respiratory -normal work of breathing, no intercostal retractions. CV -pulses regular, brisk capillary refill ?4 limbs. Abdomen-soft, nontender, nondistended. No guarding, rigidity, rebound tenderness. Musculoskeletal/neurologic -full range of motion nontender throughout bilateral upper extremities, left lower extremity with full sensation and strength in all dermatomes and myotomes. No midline cervical tenderness. Right lower extremity-knee immobilizer in place. No pain with logroll of the right hip. Knee immobilizer removed. Ecchymosis and mild deformity noted in the anterior right knee. Palpable defect in the patella. Unable to perform a straight leg raise. Brisk capillary refill. Sensation intact light touch L3-S1 dermatomes. DF, PF, EHL intact. DP, PT 2+. Pelvis is stable, nontender. Skin is intact without lacerations, abrasions. Calf is soft and nontender. Lab / Micro Data 03/21/24 07:05 03/21/24 07:05 Labs: Laboratory Results - last 24 hr 03/21/24 07:05: WBC 8.1, RBC 3.94 L, Hgb 12.1, Hct 38.2, MCV 97.0, MCH 30.7, MCHC 31.7 L, RDW Std Deviation 52.2 H, RDW Coeff of Walter 14.6, Plt Count 241, MPV 10.0, Immature Gran % (Auto) 0.400, Neut % (Auto) 68.5, Lymph % (Auto) 18.1 L, [place] % (Auto) 10.8 H, Eos % (Auto) 2.0, Baso % (Auto) 0.2, Absolute Neuts (auto) 5.6, Absolute Lymphs (auto) 1.47, Nucleated RBC % 0, Sodium 134 L, Potassium 3.6, Chloride 100, Carbon Dioxide 29.0, Anion Gap 5, BUN 17, Creatinine 0.97, Estim Creat Clear Calc 57.84, Est GFR (MDRD) Af Amer 73, Est GFR (MDRD) Non-Af 60, BUN/Creatinine Ratio 17.5, Glucose 115 H, Calcium 9.2, Phosphorus 3.2, Magnesium 2.2, TSH 4.690 H Assessment & Plan Assessment/Plan (1) Closed fracture of right patella: QUALIFIERS: Encounter type: initial encounter Fracture morphology: comminuted Fracture alignment: displaced Qualified Code(s): S82.041A - Displaced comminuted fracture of right patella, initial encounter for closed fracture PLAN: Comminuted right patella fracture -Due to her inability to perform straight leg raise as well as lalito displacement on x-ray, surgical intervention is indicated. I recommended ORIF of the right patella. I recommended we perform this today as the patient is in the hospital and any further delay of care is unnecessary. I explained she will likely be able to weight-bear as tolerated after the surgery in a knee immobilizer. I reviewed the risks, benefits, alternatives to procedure. Risks included but were not limited to bleeding, infection, loss of life or limb, need for additional surgery, persistent pain, stiffness, posttraumatic arthritis, nonhealing bone or wounds, symptomatic hardware, DVT or PE, risk of anesthesia. She expressed understanding and informed consent was obtained. N.p.o., maintenance IV fluids. EKG ordered for preoperative valuation, labs appear stable.
--- NOTE | 2024-03-21 10:32 | EKG12_ITS ---
Test Reason : PRE OP Blood Pressure : / mmHG Vent. Rate : 071 BPM Atrial Rate : 071 BPM P-R Int : 138 ms QRS Dur : 078 ms QT Int : 420 ms P-R-T Axes : 034 010 037 degrees QTc Int : 456 ms Normal sinus rhythm Inferior infarct , age undetermined Abnormal ECG No previous ECGs available Confirmed by KATHRYN LOPEZ, ([id number]), purchasing expeditor MARIUM HOOD ([id number]) on 03/22/2024 10:46:06 AM Referred By: ANTONIA Confirmed By:CYRIL PERALTA MD
[2024-03-21] MEDS: 0.9% Saline Lock 10 ML Syringe IV (10:42)
[2024-03-21] MEDS: Lactated Ringers 1,000 ML 15 ML IV (13:38)
--- NOTE | 2024-03-21 14:03 | PRE.ANES_ITS ---
ASA Classification* ASA Classification ASA Classification: 2 and E Assessment & Plan Anesthesia* Anesthesia Assessment Anesthesia Assessment: Discussed sedation and/or anesthesia options, risks, benefits, and alternatives with patient/parents/legal guardian/POA. Questions invited. The patient/parents/legal guardian/POA seems to understand and agrees to proceed with anesthesia plan. Reviewed the physical assessment, medical history, allergy history and patient home medications list prior to surgery/procedure/anesthetic and documented any changes. Performed airway and anesthesia risk assessments. Anesthesia Type Anesthesia Type: General (see written pre anesthesia record for full assessment) and Block Anesthesia Focused Assessment* Temperature: 98.2 F Pulse Rate: 77 Blood Pressure: 141/67 Respiratory Rate: 18 Pulse Ox: 93 Airway Assessment Mouth opens: >3 cm Mallampati Score: II Focused Labs Anesthesia Preop lab: CBC WBC 8.1 K/mm3 (4.4-11.0) 03/21/24 07:05 RBC 3.94 M/mm3 (4.2-5.4) L 03/21/24 07:05 Hgb 12.1 g/dL (12.0-15.0) 03/21/24 07:05 Hct 38.2 % (37-47) 03/21/24 07:05 Plt Count 241 K/mm3 (150-450) 03/21/24 07:05 CHEMISTRY Potassium 3.6 mmol/L (3.5-5.1) 03/21/24 07:05 Sodium 134 mmol/L (136-145) L 03/21/24 07:05 Magnesium 2.2 mg/dL (1.6-2.6) 03/21/24 07:05 Phosphorus 3.2 mg/dL (2.5-4.9) 03/21/24 07:05 BUN 17 mg/dL (7-18) 03/21/24 07:05 Creatinine 0.97 mg/dL (0.55-1.02) 03/21/24 07:05 Glucose 115 mg/dL (74-106) H 03/21/24 07:05 TSH 4.690 uIU/mL (0.358-3.740) H 03/21/24 07:05 COAG Pre-Assessment Diagnosis/Proposed Procedure Planned Operative Procedure(s): orif of a patella Anesthesia History 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 When Was Last Pacemaker Check QUESTION #4 FULL TEXT: You/Your Family Experience fever (hyperthermia) with Anesthesia Last Oral Intake Last Oral intake: Last Oral Intake NPO since 00:00 03/21/24 10:27 Meds taken in AM with sips of water? Meds patient instructed to take am of surgery PONV PONV - steel post installer: PONV - steel post installer Female HX of Motion Sickness HX of N/V After Surgery Non-Smoker Duration of Surgery greater than 60 minutes Number of Risk Factors PONV Score Height & Weight Height & Weight: Anesthesia: Height & Weight Height 5 ft 6 in 03/21/24 10:27 Weight: 78.4 kg 03/21/24 10:27 Body Mass Index (BMI) 27.8 03/21/24 10:27 Respiratory Assessment Respiratory Assessment - steel post installer: Respiratory Tract Infection Hx - steel post installer Hx Respiratory Tract Infection Yes: sinus problem few days 03/19/24 20:03 ago STOP Sleep Apnea STOP Sleep Apnea - steel post installer: STOP Sleep Apnea - steel post installer Hx Hypertension No 03/20/24 16:55 Hx Sleep Apnea No 03/19/24 19:51 CPAP BIPAP Do you snore loudly (louder No 03/19/24 19:51 than talking or can be heard Do you often feel tired/ No 03/19/24 19:51 fatigued/ sleepy during daytime? Has anyone observed you stop No 03/19/24 19:51 breathing during sleep? STOP Results Negative 03/19/24 19:51 QUESTION #5 FULL TEXT : Do you snore loudly (louder than talking or can be heard through closed doors)? 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 Specify any problems Hx of Preganancy in last 3 No 03/19/24 19:51 Months Nurse Filling Out Transfusion DREDICK 03/19/24 19:51 & Questions: Date: 03/19/24 03/19/24 19:51 Time: 19:52 03/19/24 19:51 Patient unable to answer at this time (ie. confused, unrespo /Reproduction History /Reproductive History - steel post installer: /Reproductive Hx- steel post installer Hx Now No 03/19/24 20:03 Gestational Age (in weeks): EDC: Hx Hx Para Hx Section SAB No 03/19/24 20:03 Active Medications Active Medications: Current Medications Generic Name Dose Route Start Last Admin Trade Name Freq PRN Reason Stop Dose Admin Acetaminophen 650 mg 03/19/24 19:39 03/21/24 05:27 Acetaminophen 325 Mg Tablet PO 650 mg Q6H PRN PRN Administration Pain 1-10 Or Fever >100.7 Albuterol Sulfate 2.5 mg 03/19/24 19:50 Albuterol 2.5 Mg/3 Ml Vial.Neb. INHALATION Q6H PRN PRN wheezing Aspirin 81 mg 03/20/24 08:00 03/21/24 08:42 Aspirin E.C. 81 Mg Tablet PO Not Given BREAKFAST THOMAS Atorvastatin Calcium 40 mg 03/19/24 22:00 03/20/24 21:36 Atorvastatin Calcium 40 Mg Tablet PO 40 mg QHS THOMAS Administration Azelastine HCl 1 spray 03/19/24 22:00 03/21/24 10:14 Azelastine Hcl Nasal.Sry NASAL Not Given BID THOMAS Enoxaparin Sodium 40 mg 03/20/24 10:00 03/21/24 10:14 Enoxaparin 40 Mg/0.4 Ml Syringe SC Not Given DAILY [facility] Hydrochlorothiazide 12.5 mg 03/20/24 10:00 03/21/24 10:14 Hydrochlorothiazide 12.5mg PO Not Given DAILY [facility] Protocol Sodium Chloride 250 mls @ 15 mls/hr 03/19/24 19:40 IV .[id number] PRN Additional IVPB Infusion Sodium Chloride 250 mls @ 15 mls/hr 03/19/24 19:40 IV .[id number] PRN Saline Flush Lactated Ringer's 1,000 mls @ 15 mls/hr 03/21/24 13:45 03/21/24 13:38 IV 15 mls/hr .Q48H THOMAS Administration Cefazolin Sodium 2 gm/ Sodium 110 mls @ 150 mls/hr 03/21/24 13:50 Chloride IV 03/21/24 14:33 PREOP ONE Levothyroxine Sodium 100 mcg 03/20/24 06:00 03/20/24 08:31 Levothyroxine 100 Mcg Tablet PO 100 mcg [id number]@0600 THOMAS Administration Levothyroxine Sodium 88 mcg 03/21/24 06:00 03/21/24 05:27 Levothyroxine 88 Mcg Tablet PO 88 mcg SuTh@0600 [facility] Administration Loratadine 10 mg 03/20/24 10:00 03/21/24 10:14 Loratadine 10 Mg Tablet PO Not Given DAILY [facility] Melatonin 3 mg 03/19/24 22:20 03/20/24 21:36 Melatonin 3 Mg Tablet PO 3 mg QHS [facility] Administration Meloxicam 15 mg 03/20/24 10:00 03/21/24 10:14 Meloxicam 15 Mg Tablet PO Not Given DAILY [facility] Morphine Sulfate 2 - 4 mg 03/19/24 19:39 Morphine 2 Mg/Ml Syringe IV Q3H PRN PRN Pain Score 6-10 Morphine Sulfate 2 - 4 mg 03/19/24 19:48 Morphine 4 Mg/Ml Syringe IV Q3H PRN PRN Pain Score 6-10 Nitroglycerin 0.4 mg 03/19/24 19:39 Nitroglycerin (Inpatient Use) 0.4 Mg Tab.Subl SL Q5M PRN CARDIAC/CHEST PAIN Ondansetron HCl 4 mg 03/19/24 19:39 Ondansetron 4 Mg/2 Ml Vial IV Q8H PRN PRN NAUSEA/VOMITING Oxycodone HCl 5 mg 03/19/24 19:39 03/21/24 05:27 Oxycodone 5 Mg Tablet PO 5 mg Q4H PRN PRN Administration Pain Score 4-10 Sodium Chloride 10 - 40 ml 03/19/24 19:40 03/21/24 10:42 0.9% Saline Lock 10 Ml Syringe IV 10 ml UD PRN Administration SALINE FLUSH PFS Medical History Acute frontal sinusitis, unspecified Acute bronchitis, unspecified Thyroid disease Home Medications ?Medication ?Instructions ?Recorded ?Last Taken ?Type hydrochlorothiazide 12.5 mg tablet 12.5 mg PO DAILY 07/02/23 03/19/24 History levothyroxine 100 mcg tablet 100 mcg PO [id number] 07/02/23 03/19/24 History levothyroxine 88 mcg tablet 88 mcg PO SUTH 07/02/23 03/17/24 History rosuvastatin 20 mg tablet 20 mg PO QHS 07/02/23 03/18/24 History albuterol sulfate 90 mcg/actuation 2 puff inhalation Q6H PRN wheezing 03/19/24 U nknown History aerosol inhaler aspirin 81 mg tablet,delayed 81 mg PO DAILY 03/19/24 03/19/24 History release azelastine 137 mcg (0.1 %) nasal 1 spray intranasal BID 03/19/24 03/19/24 His tory spray cetirizine 10 mg tablet 10 mg PO DAILY 03/19/24 03/19/24 History hydrocodone-acetaminophen 5-325mg 1 tab PO Q4H PRN PRN Pain 2 days 03/19/24 Unknown Rx 5mg-325mg #10 TABLETS meloxicam 15 mg tablet 15 mg PO DAILY 03/19/24 03/19/24 History Allergy/AdvReac Type Severity Reaction Status Date / Time No Known Allergies Allergy Verified 03/19/24 13:19 Social History Smoking Status: Never smoker alcohol intake: never Review of Systems (Anesthesia) ROS Narrative System reviewed and no additional complaints, except as documented.
[2024-03-21] MEDS: Cefazolin 2 GM in 0.9% Normal Saline (100mL Bag) 100 ML IV (14:55)
--- NOTE | 2024-03-21 15:25 | RAD_ITS ---
STUDY: X-RAY - RIGHT KNEE REASON FOR EXAM: Female, 69 years old. ORIF PATELLA TECHNIQUE: 8 C-arm view(s) of the knee. 33 seconds fluoroscopy time COMPARISON: 03/19/2024. FINDINGS: A sequence of images shows surgical reduction of previously seen patellar fracture. Correlate with procedure note. Electronically Signed: Hima Bashir MD at 22:24 EDT , RAD/Knee 1 or 2 Views IMPRESSION: undefined
--- NOTE | 2024-03-21 16:23 | PCM.OPRPT ---
Report of Operation Date of Procedure: 03/21/24 Description of Surgical Findings:: Preoperative diagnosis: Right patella fracture Postoperative diagnosis: Right patellar tendon avulsion fracture Procedure: Open reduction internal fixation right patella Surgeon: Johnnie Talley DO clinical assistant: Rena López PA-C Anesthesia: General Health Associate: Efrem Devlin CRNA Estimated blood loss: 50 cc IV fluids: 1100 cc crystalloid Urine output: None recorded Packing/drains: None Implants: Arthrex suture tape x 3, #2 FiberWire x 2 Complications: None apparent Findings: Avulsion fracture right patella inferior pole with retinacular tearing medial and lateral. Stable fracture following suture fixation. Indications: This is a 69-year-old female who sustained a fall on a flexed right knee on 03/19/2024. She was brought to [facility] where x-rays revealed a inferior pole patella fracture with complete disruption of her extensor mechanism. She was admitted service to hospitalist. She was unable to go home. I saw the patient in consultation today. I recommend surgical intervention in the form of right patella open reduction internal fixation. I reviewed the risks, benefits, and alternatives to procedure. Risks included but were not limited to bleeding, flexion, loss of life or limb, need for additional surgery, persistent pain, nonhealing bone or wounds, stiffness, posttraumatic arthritis, symptomatic hardware, DVT or PE, risk of anesthesia. Informed consent obtained with the patient. Description of procedure: Patient was identified in the preoperative holding of her name, medical record number, and date of . The operative extremity was marked. All questions were answered to the patient satisfaction. At time of her procedure, patient was brought to the operative suite positioned supine therapy table. General anesthesia was induced and endotracheal tube placed. Knee immobilizer was then removed. Well-padded pneumatic tourniquet was applied to the right upper thigh. We prepped and draped the right lower extremity normal, sterile orthopedic fashion after elevating the right leg on bath blankets. We performed a timeout confirming the side, site, operation to be performed. No concerns were voiced elected proceed with surgery. 2 g Ancef was administered IV prior to tourniquet inflation by anesthesia staff. We then exsanguinated the right lower extremity Esmarch bandage. Tourniquet was inflated to 250 mmHg which remained inflated for 50 minutes. Esmarch was removed. Longitudinal midline incision was then made over the right patella. Full-thickness skin flaps were developed down to level of the bursa. Immediately entering the bursal layer fracture hematoma was encountered. This was debrided and irrigated. Loose debris was irrigated and excised. Retinacular tearing was noted similar to a typical patellar tendon injury. Comminuted inferior pole avulsion fracture of the patellar tendon was evident. The remainder of the patella appeared to be in good repair. There was chondromalacia noted at the patellofemoral joint visualized as well as degenerative arthritic changes in the knee. I monica irrigated the wound with normal saline solution. I then proceeded with suture fixation of the fracture given the comminution and characteristics. 2 separate suture tapes were then placed through the patellar tendon via Krak?w fixation in standard patellar tendon repair technique. The sutures were then passed through the comminuted bone fragments and 3 parallel bone tunnels were placed equal distance through the patella. [employer] suture passer was used to shuttle the sutures for fixation. Tensioning the sutures reduce the fracture well and this was confirmed on fluoroscopy. Sutures were tied. I then reapproximated the retinacular tearing with interrupted [id number] #2 FiberWire suture. A cerclage suture tape was then weaved through the patellar tendon, quad tendon retinacular tissue for additional fixation. Acceptable reduction was again confirmed on fluoroscopy. I flexed the knee to 30 degrees and fixation appeared stable. Wound was monica irrigated with normal saline solution. Tourniquet deflated. Hemostasis was excellent. Bursal layer was reapproximated with running, locking #1 Vicryl suture. Dermis was reapproximated with buried interrupted 2-0 Vicryl suture and skin finally reapproximated vance. A silver Mepilex dressing was applied. A T ROM type hinged knee brace was placed and locked in full extension. Patient was safely awakened from anesthesia and extubated. She was transferred to her gurney and subsequently to PACU in stable condition. Need for skilled regional administrative assistant: Rena López PA-C was critical to the outcome of the case. During the course of the procedure the physician regional administrative assistant played a vital role. Her intimate knowledge of my steps in the procedure aided in safe and expedient completion of the procedure. The PA played a vital role in positioning particularly in obtaining the appropriate positioning. The PA was also vital in the retraction of soft tissues during the exposure and protecting vital structures. The PA was also vital and obtaining fracture reduction and assisting with hardware placement. She also played a vital role in closure and brace application with my direct supervision. Postoperative plan: Patient be transferred back to her hospital bed under the service of the admitting physician. She will be weightbearing as tolerated to right leg with a hinged knee brace locked in extension at all times. Okay to remove only for hygiene at which time the knee should not be bent under any circumstances. Lovenox while the patient is in the office, if patient is mobilizing reasonably well we will likely transition to a twice daily low-dose aspirin upon discharge. Ice and elevation encouraged. PT/OT ordered. Follow-up outpatient 2 weeks for staple removal and x-rays.
--- NOTE | 2024-03-21 16:42 | PCM.POST.ANE ---
Anesthesia: Postop Eval I Current Vital Signs Temperature: 98.2 F Pulse Rate: 82 Blood Pressure: 137/62 Respiratory Rate: 16 Pulse Ox: 95 Oxygen Delivery Method: Room Air Assessment Airway patent: Yes Spontaneous unlabored respirations: Yes Mental status: Awake and Calm nausea: No Vomiting: No Anesthesia Complication: No Fluid Hydration Crystalloid volume administer (ml): 1,100 Total IV fluid infused: 1,100 Progress Note Anesthesia document: Postop Eval 1 completed: Yes
--- NOTE | 2024-03-21 16:55 | POSTOPAN2_ITS ---
Anesthesia Postop Eval I Sum Postop Eval Completion status Anesthesia document: Postop Eval 1 completed: Yes Anesthesia Postop Eval I Summary Anesthesia Postop Eval I Summary: Anesthesia Postop Eval I: Assessment Summary Airway patent Yes 03/21/24 16:42 ORTHODONTIST VICE PRESIDENT.MDOT Spontaneous unlabored Yes 03/21/24 16:42 ORTHODONTIST VICE PRESIDENT.MDOT respirations Mental status Awake,Calm 03/21/24 16:42 ORTHODONTIST VICE PRESIDENT.MDOT nausea No 03/21/24 16:42 ORTHODONTIST VICE PRESIDENT.MDOT Vomiting No 03/21/24 16:42 ORTHODONTIST VICE PRESIDENT.MDOT Anesthesia Postop Eval I: Fluid Summary Crystalloid volume administer 1,100 03/21/24 16:42 ORTHODONTIST VICE PRESIDENT.MDOT (ml) Colloids volume administered ( ml) Blood Product volume administered (ml) Total IV fluid infused 1,100 03/21/24 16:42 ORTHODONTIST VICE PRESIDENT.MDOT Anesthesia Postop Eval I: Summary Notes Anesthesia Complication No 03/21/24 16:42 ORTHODONTIST VICE PRESIDENT.MDOT Anesthesia Complication Comment: Post-operative progress note Anesthesia: Postop Eval II Evaluation Mental status: Awake and Calm Pain Level: 2 nausea: No Vomiting: No Complications Anesthesia Complication: No
--- NOTE | 2024-03-21 16:55 | PCM.POSTANE2 ---
Anesthesia Postop Eval I Sum Postop Eval Completion status Anesthesia document: Postop Eval 1 completed: Yes Anesthesia Postop Eval I Summary Anesthesia Postop Eval I Summary: Anesthesia Postop Eval I: Assessment Summary Airway patent Yes 03/21/24 16:42 JOB PLACEMENT COUNSELOR.MDOT Spontaneous unlabored Yes 03/21/24 16:42 JOB PLACEMENT COUNSELOR.MDOT respirations Mental status Awake,Calm 03/21/24 16:42 JOB PLACEMENT COUNSELOR.MDOT nausea No 03/21/24 16:42 JOB PLACEMENT COUNSELOR.MDOT Vomiting No 03/21/24 16:42 JOB PLACEMENT COUNSELOR.MDOT Anesthesia Postop Eval I: Fluid Summary Crystalloid volume administer 1,100 03/21/24 16:42 JOB PLACEMENT COUNSELOR.MDOT (ml) Colloids volume administered ( ml) Blood Product volume administered (ml) Total IV fluid infused 1,100 03/21/24 16:42 JOB PLACEMENT COUNSELOR.MDOT Anesthesia Postop Eval I: Summary Notes Anesthesia Complication No 03/21/24 16:42 JOB PLACEMENT COUNSELOR.MDOT Anesthesia Complication Comment: Post-operative progress note Anesthesia: Postop Eval II Evaluation Mental status: Awake and Calm Pain Level: 2 nausea: No Vomiting: No Complications Anesthesia Complication: No
[2024-03-21] MEDS: MELATONIN 3 MG TABLET PO (21:33)
[2024-03-21] MEDS: Atorvastatin Calcium 40 MG Tablet PO (21:33)
[2024-03-21] MEDS: Cefazolin 1 GM/50 ML BAG IV (22:37)
[2024-03-22 01:41] VITALS: BP 111/60; PULSE 67; RESP 16; TEMP 36.9; O2SAT 94
[2024-03-22] MEDS: Cefazolin 1 GM/50 ML BAG IV (06:28)
[2024-03-22] MEDS: Levothyroxine 100 MCG Tablet PO (06:28)
[2024-03-22] MEDS: 0.9% Normal Saline (250mL Bag) 250 ML 15 ML IV (06:50)
--- NOTE | 2024-03-22 08:03 | PCM.PN.HOSP ---
Reason for Visit Reason for Visit: Diagnoses Unspecified fracture of right patella, initial encounter for closed fracture (03/21/24) Displaced comminuted fracture of right patella, initial encounter for closed fracture (03/21/24) Subjective Subjective Patient underwent Open reduction internal fixation right patella by Dr. Talley on 03/21/2024 Objective Data Objective Data Vital Signs: Vital Signs Temp Pulse Resp BP Pulse Ox O2 Del Method 98.4 F 67 16 111/60 94 Room Air 03/22/24 01:41 03/22/24 01:41 03/22/24 01:41 03/22/24 01:41 03/22/24 01:41 03/22/24 01:41 Oxygen Delivery Method Room Air Weight: 78.4 kg Body Mass Index (BMI) 27.8 Intake & Output: Intake and Output for Last 24 Hours 03/20/24 03/21/24 03/22/24 23:59 23:59 23:59 Intake Total 1000 / 1000 510 / 910 2049 Output Total 500 / 500 Balance 500 / 500 510 / 910 2049 Lab / Micro Data 03/21/24 07:05 03/21/24 07:05 Labs: Laboratory Results - last 24 hr 03/21/24 07:05: WBC 8.1, RBC 3.94 L, Hgb 12.1, Hct 38.2, MCV 97.0, MCH 30.7, MCHC 31.7 L, RDW Std Deviation 52.2 H, RDW Coeff of Walter 14.6, Plt Count 241, MPV 10.0, Immature Gran % (Auto) 0.400, Neut % (Auto) 68.5, Lymph % (Auto) 18.1 L, Casey % (Auto) 10.8 H, Eos % (Auto) 2.0, Baso % (Auto) 0.2, Absolute Neuts (auto) 5.6, Absolute Lymphs (auto) 1.47, Nucleated RBC % 0, Sodium 134 L, Potassium 3.6, Chloride 100, Carbon Dioxide 29.0, Anion Gap 5, BUN 17, Creatinine 0.97, Estim Creat Clear Calc 57.84, Est GFR (MDRD) Af Amer 73, Est GFR (MDRD) Non-Af 60, BUN/Creatinine Ratio 17.5, Glucose 115 H, Calcium 9.2, Phosphorus 3.2, Magnesium 2.2, TSH 4.690 H Radiography Diagnostic Testing: Radiology Impression Knee X-Ray 03/21/24 15:25 IMPRESSION: undefined Physical Exam Narrative GENERAL: cooperative HEENT: Atraumatic; normocephalic EYES; Anicteric, Normal Conjunctiva NECK; supple, normal thyroid, RESPIRATORY: Diminished to auscultation CARDIOVASCULAR: Regular S1 S2, GI: soft, normoactive bowel sounds, : No Renal angle tenderness; EXTREMITIES: No edema, no clubbing, MUSCULOSKELETAL: Right knee in surgical dressing and knee immobilizer NEURO: Awake; no lateralizing signs. SKIN: No Rash PSYCH; Flat affect Assessment & Plan Assessment/Plan (1) Closed fracture of right patella: QUALIFIERS: Encounter type: initial encounter Fracture morphology: comminuted Fracture alignment: displaced Qualified Code(s): S82.041A - Displaced comminuted fracture of right patella, initial encounter for closed fracture PLAN: Plan Patient is a 69-year-old lady who presented to the emergency department with pain in the right knee after hearing a pop following a fall on her rug, imaging studies demonstrated close right patella fracture admitted to regular nursing floor for pain management 1. Fall with right patella fracture ? Imaging studies demonstrated acute complete transverse fracture across the lower third of the patella with wide separation of the fracure segments. Admitted for pain management in addition to PT OT with plans for patient to follow-up with orthopedic surgery as outpatient ? 03/21/2024; consult was placed to orthopedic surgery regarding patient patella fracture plan is for surgical intervention ? 03/22/2024;Patient underwent Open reduction internal fixation right patella by Dr. Talley on 03/21/2024 2. Physical deconditioning ? Requested for PT OT eval and social services assistant to assist with discharge planning 3. Hypothyroidism ? Patient is on levothyroxine home dose continued 4. Hypertension ? Blood pressure controlled, home medications continued with dose adjustment as needed 5. Dyslipidemia ?Patient is on statin therapy, continued at home dose 6. DVT prophylaxis ? On enoxaparin Time spent in the patient's overall evaluation,decision-making process, review of diagnostic data, adjustment of management, discussion with other providers, nursing nursing and ancillary staff involved in patient's care documentation, 40 minutes Charges/Coding Visit Charges Inpatient E&M: 45671 Subs Hosp L2
[2024-03-22 08:37] LABS: Absolute Lymphocyte Count 2.34 X10^3/uL (0.83-4.51); Absolute Neutrophil Count 10.2 X10^3/uL (2.0-7.7); Basophil# 0.02 X10^3/uL; Basophil% 0.1 % (0-1); Eosinophil# 0.02 X10^3/uL; Eosinophils% 0.1 % (0-5); Hematocrit 36.1 % (37-47); Hemoglobin 11.5 g/dL (12.0-15.0); Lymphocyte # 2.34 X10^3/ul (0.83-4.51); Lymphocyte % 16.7 % (19-41); Mean Corp Hgb Conc 31.9 g/dL (32-36); Mean Corpuscular Hgb 31.1 pg (27.0-32.0); Mean Corpuscular Volume 97.6 fL (81-99); Mean Platelet Vol. 10.2 fl (6.2-12.0); Monocyte# 1.37 X10^3/uL; Monocyte% 9.8 % (0-10); NRBC Flagged by Analyzer 0 % (0-5); Neutrophil # 10.17 X10^3/uL (2.7-7.7); Neutrophil % 72.8 % (47-70); Platelet Count 235 K/mm3 (150-450); RBC Distribution Width CV 14.6 % (11.6-14.6); RBC Distribution Width SD 51.8 fl (35.1-43.9)
[2024-03-22 09:57] VITALS: BP 120/57; PULSE 79; RESP 16; TEMP 36.9; O2SAT 95
[2024-03-22] MEDS: 0.9% Saline Lock 10 ML Syringe IV (10:04)
[2024-03-22] MEDS: Enoxaparin 40 MG/0.4 ML Syringe SC (10:04)
[2024-03-22] MEDS: hydroCHLOROthiazide 12.5mg 12.5 MG PO (10:04)
[2024-03-22] MEDS: Meloxicam 15 MG Tablet PO (10:05)
[2024-03-22] MEDS: Aspirin E.C. 81 MG Tablet PO (10:05)
[2024-03-22] MEDS: Loratadine 10 MG Tablet PO (10:05)
[2024-03-22] MEDS: Azelastine HCl NASAL.SRY 1 SPRAY NASAL ×2 (10:05→21:01)
[2024-03-22 10:23] LABS: Anion Gap 8 (5-15); BUN 13 mg/dL (7-18); BUN/Creat Ratio 14.8 RATIO (10-20); Chloride 102 mmol/L (98-107); Creatinine, Serum 0.88 mg/dL (0.55-1.02); EST Glomerular Filtration Rate 68 mL/min (>60); Est Glom Filt Rate - Afr Amer 82 mL/min (>60); Estimated Creatinine Clearance 63.76 ml/min; Glucose 107 mg/dL (74-106); Potassium 3.4 mmol/L (3.5-5.1); Sodium Level 137 mmol/L (136-145)
--- NOTE | 2024-03-22 10:30 | CASEMGMT ---
DARLENE TRINIDAD Assessment Face to Face with patient for initial transition planning/care coordination assessment. DARLENE TRINIDDA introduced self and role at [facility], pt voices understanding. Pt is A&Ox4 and is resting comfortably in the chair and is calm. Care providers, pharmacy, and demographics verified. Admitting dx: Debility d/t Rt Knee cap Fracture LACE Strata: 1 PCP: Forrest Calvo Specialists: Denies Preferred Pharmacy: [facility] Insurance: [facility] A/B, Prescription Benefit: Yes LNOK: Emil [place] (Nephew) Living Arrangements: Pt lives alone in a two story home with a couple steps to enter. 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 Denies concerns at this time DME: [employer]. Cane. Grab bars. Denies further needs HHC/SNF: Denies Hx Pt?s goal: Return to PLOF Plan: Anticipate home with OP Therapy. Pt was recently seen by PT and states that she feels safe discharging home once she is medically ready. Pt denies SNF needs. Pt denies HHC. Pt states that she would prefer OP Therapy. Pt is unsure which facility she would like to attend. Pt educated that CM will provide a prescription for this and then she can bring to the facility of choice. CM to follow. Remy Barajas RN, CM
--- NOTE | 2024-03-22 11:27 | PN.ORTHO_ITS ---
Subjective Subjective Patient is s/p 69-year-old female status post open reduction internal fixation right patella with Dr. Talley 03/21/2024. Patient resting comfortably in bed. Rates pain 3/ 10 at rest. With movement 4 /10. States taking tylenol and oxycodone and ice help to relieve pain. Patient has been up with therapy. Walking with the assit of a walker . Afebrile, no chest pain, shortness of breath, negative calf pain/ erythema, and no other signs of DVT. Objective Data Objective Data Vital Signs: Vital Signs Temp Pulse Resp BP Pulse Ox O2 Del Method 98.5 F 79 16 120/57 L 95 Room Air 03/22/24 09:57 03/22/24 09:57 03/22/24 09:57 03/22/24 09:57 03/22/24 09:57 03/22/24 09:57 Oxygen Delivery Method Room Air Weight: 78.4 kg Body Mass Index (BMI) 27.8 Intake & Output: Intake and Output for Last 24 Hours 03/20/24 03/21/24 03/22/24 23:59 23:59 23:59 Intake Total 1000 / 1000 510 / 910 2049 Output Total 500 / 500 Balance 500 / 500 510 / 910 2049 Lab / Micro Data 03/22/24 07:50 03/22/24 07:50 Labs: Laboratory Results - last 24 hr 03/22/24 07:50: WBC 14.0 H, RBC 3.70 L, Hgb 11.5 L, Hct 36.1 L, MCV 97.6, MCH 31.1, MCHC 31.9 L, RDW Std Deviation 51.8 H, RDW Coeff of Walter 14.6, Plt Count 235, MPV 10.2, Immature Gran % (Auto) 0.500, Neut % (Auto) 72.8 H, Lymph % (Auto) 16.7 L, [place] % (Auto) 9.8, Eos % (Auto) 0.1, Baso % (Auto) 0.1, Absolute Neuts (auto) 10.2 H, Absolute Lymphs (auto) 2.34, Nucleated RBC % 0, Sodium 137, Potassium 3.4 L, Chloride 102, Carbon Dioxide 27.0, Anion Gap 8, BUN 13, Creatinine 0.88, Estim Creat Clear Calc 63.76, Est GFR (MDRD) Af Amer 82, Est GFR (MDRD) Non-Af 68, BUN/Creatinine Ratio 14.8, Glucose 107 H, Calcium 9.0 Radiography Diagnostic Testing: Radiology Impression Knee X-Ray 03/21/24 15:25 IMPRESSION: undefined Physical Exam Narrative Patient resting comfortably in bedside chair No signs of acute distress Satting well on room air TROM brace locked in extension Limb is warm to touch, Sensation intact throughout entire lower extremity, including saphenous, sural, superficial and deep peroneal, and tibial distribution. DP/PT pulses bounding. Able to dorsi and plantarflex feet. Dressing clear dry intact. Calf nontender to palpation, no erythema, no edema. Negative Homans Assessment & Plan Assessment/Plan (1) Closed fracture of right patella: QUALIFIERS: Encounter type: initial encounter Fracture alignment: displaced Fracture morphology: comminuted Qualified Code(s): S82.041A - Displaced comminuted fracture of right patella, initial encounter for closed fracture PLAN: Status post revision reduction internal fixation right patella fracture with Dr. Talley 03/21/2024 1. Okay for PT. Weightbearing as tolerated with T ROM brace locked in extension at all times. Okay to remove only for hygiene at which time the knee should not be bent under any circumstances. 2. Ultimate discharge plan per primary 3. Patient will follow up for post op appointment on in 2 weeks. This will need to be arranged. 4. WBC 14.0 acute reactive leukocytosis: secondary to pre operative decadron. no acute systemic signs of infection. will monitor, and likely self resolve. 5. H/H 11.5/36.1.: post operavtive anemia secondary to acute blood loss intraoperatively. Patient is asymptomatic at this time. No intraoperative complications. will continue to monitor. no acute interventions. Ultimate management interventions per primary. 6. DVT prophylaxis : Lovenox while patient is inpatient. If she goes home okay for aspirin 81 mg twice daily times at least 4 weeks. However if she transitions to halfway should maintain Lovenox. 7. Pain control: patient instructed to take tylenol 500mg 2 tablets TID. and oxycodone 1-2 tablets every 4-6 hours only as needed for pain control. 8. ok to remove post op dressing. post op day 5 9. Okay from an orthopedic standpoint to discharge when ready. Orthopedics to sign off at this time.
--- NOTE | 2024-03-22 11:27 | CASEMGMT ---
DARLENE CM into pt room, pt nephew and present. Pt agreeable to discussing dc plan with nephew and his . Pt states she does not have anyone at home that wants to take care of her. Pt nephew states that they live close but they are not able to be with pt continuously. He asks about going to [facility] for a week or two. Discussed options with pt and family. Pt states she is agreeable to going to a SNF for s/t therapy until she can be more indep at home. All family in agreement with this. Pt and family aware that SW will be in to discuss facilities with them. Updated SW.
--- NOTE | 2024-03-22 11:42 | CASEMGMT ---
Social Work- SW met with pt, pt nephew, Emil, and Emil's to discuss preference at d/c. A list of SNF providers including quality and resource use data and consistent with the patient?s preferred geographic region, medical needs, and insurance network were provided from the [facility] Guide. Pt FOC is [facility]. DCA advised that referral can be completed. ARSH Leo
--- NOTE | 2024-03-22 11:57 | CASEMGMT ---
Addendum entered by Desiree Mandel 03/22/24 13:03: [facility] accepted. Desiree Mandel DC Planning Asst. Original Note: Discharge Planning Referral sent via [facility] to [facility]. Desiree Mandel DC Planning Asst.
[2024-03-22] MEDS: oxyCODONE 5 MG Tablet PO (12:22)
[2024-03-22] MEDS: Acetaminophen 325 MG Tablet 650 MG PO (12:22)
--- NOTE | 2024-03-22 13:57 | CASEMGMT ---
Addendum entered by Terra Wilson 03/22/24 15:47: Pt needs 3 midnights and will be here through Monday. Pt is aware. ARSH Leo Original Note: Social Work- SW notified pt of acceptance to [facility]. ARSH Leo
[2024-03-22] MEDS: oxyCODONE 5 MG Tablet 10 MG PO ×2 (16:37→21:00)
[2024-03-22 16:47] VITALS: BP 116/64; PULSE 84; RESP 16; TEMP 36.6; O2SAT 97
[2024-03-22 20:54] VITALS: BP 146/76; PULSE 78; RESP 16; TEMP 37.2; O2SAT 97
[2024-03-22] MEDS: MELATONIN 3 MG TABLET PO (21:01)
[2024-03-22] MEDS: Acetaminophen 500 MG Tablet 1000 MG PO (21:01)
[2024-03-22] MEDS: Atorvastatin Calcium 40 MG Tablet PO (21:01)
[2024-03-23 03:44] VITALS: BP 115/64; PULSE 78; RESP 18; TEMP 37; O2SAT 96
[2024-03-23] MEDS: oxyCODONE 5 MG Tablet 10 MG PO ×4 (03:50→21:42)
[2024-03-23] MEDS: Levothyroxine 100 MCG Tablet PO (06:00)
[2024-03-23] MEDS: Acetaminophen 500 MG Tablet 1000 MG PO ×3 (06:00→21:41)
[2024-03-23 07:25] LABS: Absolute Lymphocyte Count 2.11 X10^3/uL (0.83-4.51); Absolute Neutrophil Count 5.1 X10^3/uL (2.0-7.7); Basophil# 0.03 X10^3/uL; Basophil% 0.4 % (0-1); Eosinophil# 0.23 X10^3/uL; Eosinophils% 2.7 % (0-5); Hemoglobin 10.7 g/dL (12.0-15.0); Lymphocyte # 2.11 X10^3/ul (0.83-4.51); Lymphocyte % 24.6 % (19-41); Mean Corp Hgb Conc 32.4 g/dL (32-36); Mean Corpuscular Hgb 31.2 pg (27.0-32.0); Mean Corpuscular Volume 96.2 fL (81-99); Mean Platelet Vol. 9.8 fl (6.2-12.0); Monocyte# 1.11 X10^3/uL; NRBC Flagged by Analyzer 0 % (0-5); Neutrophil # 5.05 X10^3/uL (2.7-7.7); Neutrophil % 58.8 % (47-70); Platelet Count 208 K/mm3 (150-450); RBC Distribution Width CV 14.5 % (11.6-14.6); RBC Distribution Width SD 50.9 fl (35.1-43.9); Red Blood Count 3.43 M/mm3 (4.2-5.4); White Blood Count 8.6 K/mm3 (4.4-11.0)
--- NOTE | 2024-03-23 07:29 | PCM.PN.HOSP ---
Reason for Visit Reason for Visit: Diagnoses Unspecified fracture of right patella, initial encounter for closed fracture (03/21/24) Displaced comminuted fracture of right patella, initial encounter for closed fracture (03/21/24) Subjective Subjective Patient seen still complains of intermittent pain in the right knee. Plan is for [facility]2020 Objective Data Objective Data Vital Signs: Vital Signs Temp Pulse Resp BP Pulse Ox O2 Del Method 98.6 F 78 18 115/64 96 Room Air 03/23/24 03:44 03/23/24 03:44 03/23/24 03:44 03/23/24 03:44 03/23/24 03:44 03/23/24 03:44 Oxygen Delivery Method Room Air Weight: 78.4 kg Body Mass Index (BMI) 27.8 Intake & Output: Intake and Output for Last 24 Hours 03/21/24 03/22/24 03/23/24 23:59 23:59 23:59 Intake Total 510 / 910 3773.00 / 3773.00 800 / 800 Balance 510 / 910 3773.00 / 3773.00 800 / 800 Lab / Micro Data 03/23/24 06:58 03/23/24 06:58 Labs: Laboratory Results - last 24 hr 03/22/24 07:50: WBC 14.0 H, RBC 3.70 L, Hgb 11.5 L, Hct 36.1 L, MCV 97.6, MCH 31.1, MCHC 31.9 L, RDW Std Deviation 51.8 H, RDW Coeff of Walter 14.6, Plt Count 235, MPV 10.2, Immature Gran % (Auto) 0.500, Neut % (Auto) 72.8 H, Lymph % (Auto) 16.7 L, [place] % (Auto) 9.8, Eos % (Auto) 0.1, Baso % (Auto) 0.1, Absolute Neuts (auto) 10.2 H, Absolute Lymphs (auto) 2.34, Nucleated RBC % 0, Sodium 137, Potassium 3.4 L, Chloride 102, Carbon Dioxide 27.0, Anion Gap 8, BUN 13, Creatinine 0.88, Estim Creat Clear Calc 63.76, Est GFR (MDRD) Af Amer 82, Est GFR (MDRD) Non-Af 68, BUN/Creatinine Ratio 14.8, Glucose 107 H, Calcium 9.0 03/23/24 06:58: WBC 8.6, RBC 3.43 L, Hgb 10.7 L, Hct 33.0 L, MCV 96.2, MCH 31.2, MCHC 32.4, RDW Std Deviation 50.9 H, RDW Coeff of Walter 14.5, Plt Count 208, MPV 9.8, Immature Gran % (Auto) 0.500, Neut % (Auto) 58.8, Lymph % (Auto) 24.6, [place] % (Auto) 13.0 H, Eos % (Auto) 2.7, Baso % (Auto) 0.4, Absolute Neuts (auto) 5.1, Absolute Lymphs (auto) 2.11, Nucleated RBC % 0 Physical Exam Narrative GENERAL: cooperative HEENT: Atraumatic; normocephalic EYES; Anicteric, Normal Conjunctiva NECK; supple, normal thyroid, RESPIRATORY: Diminished to auscultation CARDIOVASCULAR: Regular S1 S2, GI: soft, normoactive bowel sounds, : No Renal angle tenderness; EXTREMITIES: No edema, no clubbing, MUSCULOSKELETAL: Right knee in surgical dressing and knee immobilizer NEURO: Awake; no lateralizing signs. SKIN: No Rash PSYCH; Flat affect Assessment & Plan Assessment/Plan (1) Closed fracture of right patella: QUALIFIERS: Encounter type: initial encounter Fracture alignment: displaced Fracture morphology: comminuted Qualified Code(s): S82.041A - Displaced comminuted fracture of right patella, initial encounter for closed fracture PLAN: Plan Patient is a 69-year-old lady who presented to the emergency department with pain in the right knee after hearing a pop following a fall on her rug, imaging studies demonstrated close right patella fracture admitted to regular nursing floor for pain management 1. Fall with right patella fracture ? Imaging studies demonstrated acute complete transverse fracture across the lower third of the patella with wide separation of the fracure segments. Admitted for pain management in addition to PT OT with plans for patient to follow-up with orthopedic surgery as outpatient ? 03/21/2024; consult was placed to orthopedic surgery regarding patient patella fracture plan is for surgical intervention ? 03/22/2024;Patient underwent Open reduction internal fixation right patella by Dr. Talley on 03/21/2024 2. Physical deconditioning ? Requested for PT OT eval and rn social services to assist with discharge planning ? Plan is for patient to be transferred to [facility] on Monday?03/24/2024 3. Hypothyroidism ? Patient is on levothyroxine home dose continued 4. Hypertension ? Blood pressure controlled, home medications continued with dose adjustment as needed 5. Dyslipidemia ?Patient is on statin therapy, continued at home dose 6. Anemia ? Secondary to chronic disorder monitoring H&H and transfuse if patient becomes symptomatic or hemoglobin falls below 7 7. DVT prophylaxis ? On enoxaparin Time spent in the patient's overall evaluation,decision-making process, review of diagnostic data, adjustment of management, discussion with other providers, nursing nursing and ancillary staff involved in patient's care documentation, 36 minutes Charges/Coding Visit Charges Inpatient E&M: 79929 Subs Hosp L2
[2024-03-23 07:42] LABS: Anion Gap 5 (5-15); BUN 13 mg/dL (7-18); BUN/Creat Ratio 15.1 RATIO (10-20); Calcium,Total 8.7 mg/dL (8.5-10.1); Chloride 101 mmol/L (98-107); Creatinine, Serum 0.86 mg/dL (0.55-1.02); EST Glomerular Filtration Rate 70 mL/min (>60); Est Glom Filt Rate - Afr Amer 84 mL/min (>60); Estimated Creatinine Clearance 65.24 ml/min; Glucose 103 mg/dL (74-106); Potassium 3.7 mmol/L (3.5-5.1); Sodium Level 136 mmol/L (136-145)
[2024-03-23] MEDS: Enoxaparin 40 MG/0.4 ML Syringe SC (08:57)
[2024-03-23] MEDS: Loratadine 10 MG Tablet PO (08:57)
[2024-03-23] MEDS: hydroCHLOROthiazide 12.5mg 12.5 MG PO (08:58)
[2024-03-23] MEDS: Aspirin E.C. 81 MG Tablet PO (08:58)
[2024-03-23] MEDS: Azelastine HCl NASAL.SRY 1 SPRAY NASAL ×2 (08:58→21:42)
[2024-03-23 09:00] VITALS: BP 109/58; PULSE 76; RESP 16; TEMP 36.7; O2SAT 96
[2024-03-23] MEDS: Meloxicam 15 MG Tablet PO (09:01)
[2024-03-23 15:00] VITALS: BP 101/58; PULSE 81; RESP 16; TEMP 36.4; O2SAT 96
[2024-03-23] MEDS: MELATONIN 3 MG TABLET PO (21:41)
[2024-03-23] MEDS: Atorvastatin Calcium 40 MG Tablet PO (21:41)
[2024-03-23 22:02] VITALS: BP 117/64; PULSE 87; RESP 16; TEMP 36.8; O2SAT 96
[2024-03-24 03:45] VITALS: BP 109/52; PULSE 89; RESP 16; TEMP 36.9; O2SAT 94
[2024-03-24] MEDS: oxyCODONE 5 MG Tablet 10 MG PO ×2 (03:52→10:21)
[2024-03-24] MEDS: Acetaminophen 500 MG Tablet 1000 MG PO (05:10)
[2024-03-24] MEDS: Levothyroxine 88 MCG Tablet PO (05:10)
--- NOTE | 2024-03-24 07:36 | PCM.PN.HOSP ---
Reason for Visit Reason for Visit: Diagnoses Unspecified fracture of right patella, initial encounter for closed fracture (03/21/24) Displaced comminuted fracture of right patella, initial encounter for closed fracture (03/21/24) Subjective Subjective Patient seen uneventful night. Transferred to a penitentiary facility pending. Objective Data Objective Data Vital Signs: Vital Signs Temp Pulse Resp BP Pulse Ox O2 Del Method 98.4 F 89 16 109/52 L 94 Room Air 03/24/24 03:45 03/24/24 03:45 03/24/24 03:45 03/24/24 03:45 03/24/24 03:45 03/24/24 03:45 Oxygen Delivery Method Room Air Weight: 78.4 kg Body Mass Index (BMI) 27.8 Intake & Output: Intake and Output for Last 24 Hours 03/22/24 03/23/24 03/24/24 23:59 23:59 23:59 Intake Total 3773.00 / 3773.00 1326.75 / 1326.75 800 / 800 Balance 3773.00 / 3773.00 1326.75 / 1326.75 800 / 800 Lab / Micro Data 03/23/24 06:58 03/23/24 06:58 Labs: Laboratory Results - last 24 hr 03/23/24 06:58: Sodium 136, Potassium 3.7, Chloride 101, Carbon Dioxide 30.0, Anion Gap 5, BUN 13, Creatinine 0.86, Estim Creat Clear Calc 65.24, Est GFR (MDRD) Af Amer 84, Est GFR (MDRD) Non-Af 70, BUN/Creatinine Ratio 15.1, Glucose 103, Calcium 8.7 Physical Exam Narrative GENERAL: cooperative HEENT: Atraumatic; normocephalic EYES; Anicteric, Normal Conjunctiva NECK; supple, normal thyroid, RESPIRATORY: Diminished to auscultation CARDIOVASCULAR: Regular S1 S2, GI: soft, normoactive bowel sounds, : No Renal angle tenderness; EXTREMITIES: No edema, no clubbing, MUSCULOSKELETAL: Right knee in surgical dressing and knee immobilizer NEURO: Awake; no lateralizing signs. SKIN: No Rash PSYCH; Flat affect Assessment & Plan Assessment/Plan (1) Closed fracture of right patella: QUALIFIERS: Encounter type: initial encounter Fracture alignment: displaced Fracture morphology: comminuted Qualified Code(s): S82.041A - Displaced comminuted fracture of right patella, initial encounter for closed fracture PLAN: Plan Patient is a 69-year-old lady who presented to the emergency department with pain in the right knee after hearing a pop following a fall on her rug, imaging studies demonstrated close right patella fracture admitted to regular nursing floor for pain management 1. Fall with right patella fracture ? Imaging studies demonstrated acute complete transverse fracture across the lower third of the patella with wide separation of the fracure segments. Admitted for pain management in addition to PT OT with plans for patient to follow-up with orthopedic surgery as outpatient ? 03/21/2024; consult was placed to orthopedic surgery regarding patient patella fracture plan is for surgical intervention ? 03/22/2024;Patient underwent Open reduction internal fixation right patella by Dr. Talley on 03/21/2024 ? 03/24/2024; plan is for patient to be transferred to a penitentiary facility 2. Physical deconditioning ? Requested for PT OT eval and nephrology social worker to assist with discharge planning ? Plan is for patient to be transferred to [facility] on Monday?03/24/2024 3. Hypothyroidism ? Patient is on levothyroxine home dose continued 4. Hypertension ? Blood pressure controlled, home medications continued with dose adjustment as needed 5. Dyslipidemia ?Patient is on statin therapy, continued at home dose 6. Anemia ? Secondary to chronic disorder monitoring H&H and transfuse if patient becomes symptomatic or hemoglobin falls below 7 7. DVT prophylaxis ? On enoxaparin Time spent in the patient's overall evaluation,decision-making process, review of diagnostic data, adjustment of management, discussion with other providers, nursing nursing and ancillary staff involved in patient's care documentation, 36 minutes
--- NOTE | 2024-03-24 09:42 | TREXTCAR_ITS ---
Diet Diet Order/Speech Therapy: 03/22/24 09:52 Diet: Regular - General Wound(s) RT LEG: Wound Type: Surgical Incision Therapies Physical Therapy: Eval and Treat Occupational Therapy: Eval and Treat Problem/Diagnosis (1) Closed fracture of right patella: Status: Acute Code(s): S82.001A - Unspecified fracture of right patella, initial encounter for closed fracture Plan Patient is a 69-year-old lady who presented to the emergency department with pain in the right knee after hearing a pop following a fall on her rug, imaging studies demonstrated close right patella fracture admitted to regular nursing floor for pain management 1. Fall with right patella fracture ? Imaging studies demonstrated acute complete transverse fracture across the lower third of the patella with wide separation of the fracure segments. Admitted for pain management in addition to PT OT with plans for patient to follow-up with orthopedic surgery as outpatient ? 03/21/2024; consult was placed to orthopedic surgery regarding patient patella fracture plan is for surgical intervention ? 03/22/2024;Patient underwent Open reduction internal fixation right patella by Dr. Talley on 03/21/2024 ? 03/24/2024; plan [facility] 2. Physical deconditioning ? Requested for PT OT eval and social media senior associate to assist with discharge planning ? Plan is for patient to be transferred to [facility] on Monday?03/24/2024 3. Hypothyroidism ? Patient is on levothyroxine home dose continued 4. Hypertension ? Blood pressure controlled, home medications continued with dose adjustment as needed 5. Dyslipidemia ?Patient is on statin therapy, continued at home dose 6. Anemia ? Secondary to chronic disorder monitoring H&H and transfuse if patient becomes symptomatic or hemoglobin falls below 7 7. DVT prophylaxis ? On enoxaparin Time spent in the patient's overall evaluation,decision-making process, review of diagnostic data, adjustment of management, discussion with other providers, nursing nursing and ancillary staff involved in patient's care documentation, 36 minutes Allergies/Procedures Done in Hospital Allergies No Known Allergies Allergy (Verified 03/19/24 13:19) Type of Care/Length of Stay Estimated LOS: Convalescent Care Less Than 30 days Type of Care Needed: Skilled Rehab Potential: Good Prognosis: Good Additional Orders/Day of Discharge Day of Discharge: 03/24/24 Discharge Plan Admission Admit Date/Time: 03/21/24 12:27 Attending Provider: Ken Murphy Primary Care Provider: Forrest Calvo Consulting Providers: Lizy Eaton; Johnnie Talley Instructions Patient Instructions: ED Patella Fracture Discharge Orders/Prescriptions Prescriptions: New hydrocodone-acetaminophen 5-325 mg tablet 1 tab PO Q4H PRN PRN (Reason: Pain) 2 Days Qty: 10 0RF melatonin 3 mg Tablet 3 mg PO QHS Qty: 0 0RF acetaminophen 500 mg Tablet 1,000 mg PO Q8 Qty: 0 0RF oxycodone 5 mg Tablet 10 mg PO Q4H PRN PRN (Reason: Pain Score 4-10) 3 Days Qty: 10 0RF enoxaparin 40 mg/0.4 mL Syringe 40 mg subcut DAILY 3 Days Qty: 0 0RF sennosides-docusate sodium [Stimulant Laxative Plus] 8.6-50 mg Tablet 2 tab PO DAILY Qty: 0 0RF Continued levothyroxine 100 mcg tablet 100 mcg PO MOTUWEFRSA levothyroxine 88 mcg tablet 88 mcg PO SUTH hydrochlorothiazide 12.5 mg tablet 12.5 mg PO DAILY rosuvastatin 20 mg tablet 20 mg PO QHS albuterol sulfate 90 mcg/actuation HFA aerosol inhaler 2 puff inhalation Q6H PRN (Reason: wheezing) cetirizine 10 mg tablet 10 mg PO DAILY meloxicam 15 mg tablet 15 mg PO DAILY aspirin 81 mg tablet,delayed release (DR/EC) 81 mg PO DAILY azelastine 137 mcg (0.1 %) spray,non-aerosol 1 spray INTRANASAL BID Referrals / Follow Up: Forrest Calvo DO [Primary Care Provider] - Johnnie Talley DO [Med Staff - Active Staff] - Within 2 Weeks Andrew Sanford MD [Med Staff - Active Staff] - 3-5 Days Disposition Disposition (needs filled in before D/C Order can be placed): Penitentiary Facility (1) Closed fracture of right patella Qualifiers: Encounter type: initial encounter Fracture morphology: comminuted Fracture alignment: displaced Qualified Code(s): S82.041A - Displaced comminuted fractu re of right patella, initial encounter for closed fracture
[2024-03-24 09:45] VITALS: PULSE 77; RESP 16; TEMP 36.9; O2SAT 94
--- NOTE | 2024-03-24 09:46 | DS.PCM_ITS ---
Providers Date of Admission: 03/21/24 Date of Discharge: 03/24/24 Primary Care Physician: Dr. Forrest Calvo, DO Consultations 03/20/24 17:14 Consult: Orthopedics Routine Consulting Provider: Johnnie Talley Reason for Consult: patella fracture EMERGENT Consult: No MD Notified: Yes Date Notified: 03/20/24 Time Notified: 17:14 Method of Notification: Verbal Reason For Visit: DEBILITY DUE TO RIGHT KNEE CAP FRACTURE Diagnosis Discharge Diagnosis (1) Closed fracture of right patella: Status: Acute Code(s): S82.001A - Unspecified fracture of right patella, initial encounter for closed fracture Qualifiers: Encounter type: initial encounter Fracture morphology: comminuted F racture alignment: displaced Qualified Code(s): S82.041A - Displaced comminuted fracture of right patella, initial encounter for closed fracture Plan Patient is a 69-year-old lady who presented to the emergency department with pain in the right knee after hearing a pop following a fall on her rug, imaging studies demonstrated close right patella fracture admitted to regular nursing floor for pain management 1. Fall with right patella fracture ? Imaging studies demonstrated acute complete transverse fracture across the lower third of the patella with wide separation of the fracure segments. Admitted for pain management in addition to PT OT with plans for patient to follow-up with orthopedic surgery as outpatient ? 03/21/2024; consult was placed to orthopedic surgery regarding patient patella fracture plan is for surgical intervention ? 03/22/2024;Patient underwent Open reduction internal fixation right patella by Dr. Talley on 03/21/2024 ? 03/24/2024; plan is for patient to be transferred to a halfway facility 2. Physical deconditioning ? Requested for PT OT eval and healthcare social worker to assist with discharge planning ? Plan is for patient to be transferred to [facility] on Monday?03/24/2024 3. Hypothyroidism ? Patient is on levothyroxine home dose continued 4. Hypertension ? Blood pressure controlled, home medications continued with dose adjustment as needed 5. Dyslipidemia ?Patient is on statin therapy, continued at home dose 6. Anemia ? Secondary to chronic disorder monitoring H&H and transfuse if patient becomes symptomatic or hemoglobin falls below 7 7. DVT prophylaxis ? On enoxaparin Time spent in the patient's overall evaluation,decision-making process, review of diagnostic data, adjustment of management, discussion with other providers, nursing nursing and ancillary staff involved in patient's care documentation, 36 minutes Medications at Discharge Home Medications hydrochlorothiazide 12.5 mg tablet 12.5 mg PO DAILY 07/02/23 levothyroxine 100 mcg tablet 100 mcg PO MOTUWEFRSA 07/02/23 levothyroxine 88 mcg tablet 88 mcg PO SUTH 07/02/23 rosuvastatin 20 mg tablet 20 mg PO QHS 07/02/23 albuterol sulfate 90 mcg/actuation aerosol inhaler 2 puff inhalation Q6H PRN wheezing 03/19/24 aspirin 81 mg tablet,delayed release 81 mg PO DAILY 03/19/24 azelastine 137 mcg (0.1 %) nasal spray 1 spray intranasal BID 03/19/24 cetirizine 10 mg tablet 10 mg PO DAILY 03/19/24 hydrocodone-acetaminophen 5-325mg 5mg-325mg 1 tab PO Q4H PRN PRN Pain 2 days #10 TABLETS 03/19/24 meloxicam 15 mg tablet 15 mg PO DAILY 03/19/24 acetaminophen 500 mg tablet 1,000 mg (2 x 500 mg) PO Q8 #0 tabs 03/24/24 enoxaparin 40 mg/0.4 mL subcutaneous syringe 40 mg (0.4 mL) subcut DAILY 3 days #0 mL 03/24/24 melatonin 3 mg tablet 3 mg PO QHS #0 tabs 03/24/24 oxycodone 5 mg tablet 10 mg (2 x 5 mg) PO Q4H PRN PRN Pain Score 4-10 3 days #10 tabs 03/24/24 sennosides 8.6 mg-docusate sodium 50 mg tablet (Stimulant Laxative Plus) 2 tab PO DAILY #0 tabs 03/24/24 Physical Exam Narrative GENERAL: cooperative HEENT: Atraumatic; normocephalic EYES; Anicteric, Normal Conjunctiva NECK; supple, normal thyroid, RESPIRATORY: Diminished to auscultation CARDIOVASCULAR: Regular S1 S2, GI: soft, normoactive bowel sounds, : No Renal angle tenderness; EXTREMITIES: No edema, no clubbing, MUSCULOSKELETAL: Right knee in surgical dressing and knee immobilizer NEURO: Awake; no lateralizing signs. SKIN: No Rash PSYCH; Flat affect Weight / BMI Weight Weight: 78.4 kg Body Mass Index (BMI) 27.8 ABG / Lab / Microbiology Data 03/23/24 06:58 03/23/24 06:58 D/C Instructions Discharge Diet: No restrictions Discharge Activity: Return to Normal Activity Call your doctor if you observe: Fever of 101 or Higher, Shortness of breath, Fainting spells and Chest pain Meaningful Use Info Meaningful Use Meaningful Use Diagnoses (Choose all that apply): None applicable Ischemic Stroke Statin Dosing Therapy Reference: STATIN DOSE THERAPY REFERENCE: * Patients > 75 years receive moderate or high dose statin therapy. * Patients 75 years or YOUNGER should receive HIGH intensity statin dose unless contraindicated. You will be required to document reason for non-treatment if statin daily dose does not meet guidelines. HIGH DOSE STATIN THERAPY DAILY Atorvastatin > than or = to 40 mg Rosuvastatin > than or = to 20 mg Amlodipine + Atorvastatin > than or = to 2.5/40 mg Ezetimibe + Simvastatin 10/80 mg Simvastatin 80mg Discharge Plan Admission Admit Date/Time: 03/21/24 12:27 Attending Provider: Ken Murphy Primary Care Provider: Forrest Calvo Consulting Providers: Lizy Eaton; Johnnie Talley Instructions Patient Instructions: ED Patella Fracture Discharge Orders/Prescriptions Prescriptions: New hydrocodone-acetaminophen 5-325 mg tablet 1 tab PO Q4H PRN PRN (Reason: Pain) 2 Days Qty: 10 0RF melatonin 3 mg Tablet 3 mg PO QHS Qty: 0 0RF acetaminophen 500 mg Tablet 1,000 mg PO Q8 Qty: 0 0RF oxycodone 5 mg Tablet 10 mg PO Q4H PRN PRN (Reason: Pain Score 4-10) 3 Days Qty: 10 0RF enoxaparin 40 mg/0.4 mL Syringe 40 mg subcut DAILY 3 Days Qty: 0 0RF sennosides-docusate sodium [Stimulant Laxative Plus] 8.6-50 mg Tablet 2 tab PO DAILY Qty: 0 0RF Continued levothyroxine 100 mcg tablet 100 mcg PO MOTUWEFRSA levothyroxine 88 mcg tablet 88 mcg PO SUTH hydrochlorothiazide 12.5 mg tablet 12.5 mg PO DAILY rosuvastatin 20 mg tablet 20 mg PO QHS albuterol sulfate 90 mcg/actuation HFA aerosol inhaler 2 puff inhalation Q6H PRN (Reason: wheezing) cetirizine 10 mg tablet 10 mg PO DAILY meloxicam 15 mg tablet 15 mg PO DAILY aspirin 81 mg tablet,delayed release (DR/EC) 81 mg PO DAILY azelastine 137 mcg (0.1 %) spray,non-aerosol 1 spray INTRANASAL BID Referrals / Follow Up: Forrest Calvo DO [Primary Care Provider] - Johnnie Talley DO [Med Staff - Active Staff] - Within 2 Weeks Andrew Sanford MD [Med Staff - Active Staff] - 3-5 Days Disposition Disposition (needs filled in before D/C Order can be placed): [facility] Charges/Coding Visit Charges Inpatient E&M: 91799 Disch Hosp >30min
[2024-03-24] MEDS: Enoxaparin 40 MG/0.4 ML Syringe SC (10:11)
[2024-03-24] MEDS: hydroCHLOROthiazide 12.5mg 12.5 MG PO (10:12)
[2024-03-24] MEDS: Loratadine 10 MG Tablet PO (10:12)
[2024-03-24] MEDS: Aspirin E.C. 81 MG Tablet PO (10:12)
[2024-03-24] MEDS: Azelastine HCl NASAL.SRY 1 SPRAY NASAL (10:12)
[2024-03-24] MEDS: Meloxicam 15 MG Tablet PO (10:12)
[2024-03-24] MEDS: Senna/Docusate Sodium 1 Tablet 2 TABLET PO (10:21)
== END 2024-03-24 11:48 | disposition skilled nursing facility (03) | DRG 517 ==
LOC: ED 14:32 → MS3 17:55
PROVIDERS: Student in an Organized Health Care Education/Training Program; Admitting Provider Student in an Organized Health Care Education/Training Program; Emergency Provider Emergency Medicine; PCP Student in an Organized Health Care Education/Training Program; Visit Provider Internal Medicine
PROC: 0QSD04Z Reposition Right Patella with Internal Fixation Device, Open Approach (ICD-10-PCS; CPT 27524; principal; 2024-03-21 14:30)
DX: S82.031A Displaced transverse fracture of right patella, initial encounter for closed fracture (principal); D63.8 Anemia in other chronic diseases classified elsewhere; E03.9 Hypothyroidism, unspecified; I10 Essential (primary) hypertension; W19.XXXA Unspecified fall, initial encounter; M17.11 Unilateral primary osteoarthritis, right knee; E78.5 Hyperlipidemia, unspecified; Z96.641 Presence of right artificial hip joint; Z79.82 Long term (current) use of aspirin; M94.20 Chondromalacia, unspecified site; Y92.000 Kitchen of unspecified non-institutional (private) residence as the place of occurrence of the external cause; Z79.899 Other long term (current) drug therapy; Z79.890 Hormone replacement therapy
CPT/HCPCS: 36415; 73560; 76000; 80048; 83735; 84100; 84443; 85025; 93005; 94668; 97116; 97162; 97166; 97530; 97535; 99285; J7050; J7120; A4216; J2405